=== PATIENT | female | born 1960 | race Caucasian/White ===

== ENCOUNTER 2017-02-05 07:17 | Inpatient (IN) ==
[2017-01-30 14:27] LABS: Appearance,Urine CLEAR; Bacteria,Urine 0 /hpf (0); Bilirubin,Urine NEG (NEG); Color,Urine YELLOW; Glucose,Urine (UA) NEGATIVE (NEG); Leukocyte Esterase,Urine 500 /uL (NEG); Mucus,Urine FEW /hpf (0); Nitrate,Urine NEG (NEG); Protein,Urine NEG (NEG); Specific Gravity,Urine 1.021 (1.000-1.035); Urine Blood NEG mg/dL (<0.03); Urine RBC 4 /hpf (0-1); Urine Squamous Epithelial Cell 1 /hpf (0-4); Urine Transitional Epi Cells 1 /hpf (0-2); Urine WBC 52 /hpf (0-4); Urobilinogen,Urine NEG (NEG)
[2017-01-30 15:00] LABS: Basophils # (Auto) 0.1 K/mcL (0.0-0.3); Basophils % (Auto) 0.7 % (0.0-2.0); Eosinophils # (Auto) 0.4 K/mcL (0.0-0.7); Eosinophils % (Auto) 4.1 % (0.0-7.0); Lymphocytes # (Auto) 3.2 K/mcL (1.5-4.8); Lymphocytes % (Auto) 29.3 % (15.5-49.0); Mean Cell Volume 88.3 fL (80.0-100.0); Monocytes # (Auto) 0.5 K/mcL (0.1-0.9); Monocytes % (Auto) 4.9 % (1.0-12.0); Platelet Count 248 K/mcL (140-440); RBC 4.85 M/mcL (4.00-5.20); Red Cell Distribution Width 14.2 % (11.5-14.5)
[2017-01-30 15:31] LABS: Blood Urea Nitrogen 13 mg/dl (6-20)
--- NOTE | 2017-02-03 16:30 | EKG Interpretations ---
LEATHER STITCHER: Joe Vasquez MD EKG DATE: 01/30/2017 at 1:15 p.m. TODAY'S DATE: 02/02/2017 FINDINGS: 1. Sinus rhythm, 78 beats per minute. 2. Nonspecific ST-segment changes. AmirahJS: Job ID: [id number] Doc ID: [id number] Joe Vasquez MD
[~2017-02-05 07:17] MED LIST: ACETAMINOPHEN 500 MG TABLET PO SCH; PREGABALIN 100 MG CAPSULE PO SCH; ceFAZolin 1 GM VIAL IV SCH; oxyCODONE 10 MG TAB.ER.12H PO SCH
[2017-02-05 08:40] LABS: Appearance,Urine CLEAR; Bilirubin,Urine NEG (NEG); Color,Urine YELLOW; Glucose,Urine (UA) NEGATIVE (NEG); Leukocyte Esterase,Urine NEG /uL (NEG); Nitrate,Urine NEG (NEG); Protein,Urine NEG (NEG); Specific Gravity,Urine 1.019 (1.000-1.035); Urine Blood NEG mg/dL (<0.03); Urobilinogen,Urine NEG (NEG)
[2017-02-05] MEDS ORDERED: IPRATROPIUM/ALBUTEROL 3 ML AMPUL.NEB NEB ONE ×2 (10:09→10:12)
[2017-02-05] MEDS ORDERED: PROPOFOL 200 MG/20 ML VIAL IV ONE (11:00)
[2017-02-05] MEDS ORDERED: PHENYLEPHRINE 10 MG/ML VIAL IV ONE (11:00)
[2017-02-05] MEDS ORDERED: DEXAMETHASONE 10 MG/ML VIAL IV ONE (11:00)
[2017-02-05] MEDS ORDERED: LIDOCAINE HCL/PF 100 MG/5 ML SYRINGE IV ONE (11:00)
[2017-02-05] MEDS ORDERED: ePHEDrine 50 MG/ML AMPUL IV ONE (11:00)
[2017-02-05] MEDS ORDERED: ONDANSETRON 4 MG/2 ML VIAL IV ONE (11:00)
[2017-02-05] MEDS ORDERED: SUCCINYLCHOLINE 20 MG/ML ML IV ONE (11:00)
[2017-02-05] MEDS ORDERED: ALBUTEROL SULFATE 1 PUFF INHALER INH PRN (11:00)
[2017-02-05] MEDS ORDERED: KETAMINE 100 MG/ML ML IV ONE (11:00)
[2017-02-05] MEDS ORDERED: TRANEXAMIC ACID 1,000 MG/10 ML VIAL IV ONE ×3 (11:00→12:56)
[2017-02-05] MEDS ORDERED: MIDAZOLAM 2 MG/2 ML VIAL IV ONE (11:00)
[2017-02-05] MEDS ORDERED: BISACODYL 10 MG SUPP.RECT PR PRN ×2 (11:02→12:56)
[2017-02-05] MEDS ORDERED: ACETAMINOPHEN 325 MG TABLET PO PRN ×2 (11:02→12:56)
[2017-02-05] MEDS ORDERED: BENZOCAINE/MENTHOL 1 LOZENGE PO PRN ×3 (11:02→12:56)
[2017-02-05] MEDS ORDERED: ONDANSETRON 4 MG/2 ML VIAL IV PRN ×3 (11:02→12:56)
[2017-02-05] MEDS ORDERED: HYDROmorphone 2 MG/ML SYRINGE IV PRN ×3 (11:02→12:56)
[2017-02-05] MEDS ORDERED: MAGNESIUM HYDROXIDE 30 ML ORAL.SUSP PO PRN ×2 (11:02→12:56)
[2017-02-05] MEDS ORDERED: TEMAZEPAM 15 MG CAPSULE PO PRN ×2 (11:02→12:56)
[2017-02-05] MEDS ORDERED: FLEETS ADULT ENEMA PR PRN ×2 (11:02→12:56)
[2017-02-05] MEDS ORDERED: POLYETHYLENE GLYCOL 3350 17 GM PACKET PO PRN ×2 (11:02→12:56)
[2017-02-05] MEDS ORDERED: NALOXONE HCL 0.4 MG/ML VIAL IV PRN (12:24)
[2017-02-05] MEDS ORDERED: ePHEDrine 50 MG/ML AMPUL IV PRN (12:24)
[2017-02-05] MEDS ORDERED: IPRATROPIUM/ALBUTEROL 3 ML AMPUL.NEB NEB PRN (12:24)
[2017-02-05] MEDS ORDERED: diphenhydrAMINE 50 MG/ML VIAL IV PRN (12:24)
[2017-02-05] MEDS ORDERED: FLUMAZENIL 0.1 MG/ML ML IV PRN (12:24)
[2017-02-05] MEDS ORDERED: MEPERIDINE 50 MG/ML SYRINGE IM PRN (12:24)
[2017-02-05] MEDS ORDERED: LACTATED RINGERS 250 ML IV PRN (12:24)
[2017-02-05] MEDS ORDERED: MEPERIDINE 25 MG/ML SYRINGE IV PRN (12:24)
[2017-02-05] MEDS ORDERED: METHOCARBAMOL 1,000 MG/10 ML VIAL IV PRN (12:24)
[2017-02-05] MEDS ORDERED: LACTATED RINGERS 1,000 ML IV SCH (12:30)
[2017-02-05] MEDS ORDERED: KETOROLAC 15 MG/ML VIAL IV PRN (12:56)
[2017-02-05] MEDS ORDERED: oxyCODONE/APAP 5/325MG TABLET PO PRN (12:56)
--- NOTE | 2017-02-05 12:56 | Brief Operative Note ---
Date of procedure: 02/05/17 Pre-op diagnosis: left hip djd Post-op diagnosis: same Procedure: left jake Grafts/Implants: Yes Anesthesia: GETA Surgeon: Henri Nava Sanitary Engineering Teacher: Fitz Pearson Estimated blood loss (cc): 150 Specimens Removed/Pathology: none sent Condition: stable Disposition: PACU
[2017-02-05] MEDS ORDERED: ceFAZolin 1 GM VIAL IV SCH (13:00)
[2017-02-05] MEDS ORDERED: 0.45 % SODIUM CHLORIDE 1,000 ML IV SCH (13:00)
[2017-02-05] MEDS ORDERED: GENTAMICIN SULFATE 800 MG/20 ML VIAL IR ONE (13:17)
[2017-02-05] MEDS: fentaNYL 100 MCG/2 ML VIAL IV PRN ×2 (13:39→13:44)
--- NOTE | 2017-02-05 13:55 | Operative Note ---
DATE OF OPERATION: 02/05/2017 PREOPERATIVE DIAGNOSIS: Left hip degenerative arthritis. POSTOPERATIVE DIAGNOSIS: Left hip degenerative arthritis. PROCEDURE: Left total hip arthroplasty. SURGEON: Henri Nava MD. FITNESS STUDIES TEACHER: Fitz Pearson PA-C. ANESTHESIA: General LMA anesthesia. COMPLICATIONS: None. ESTIMATED BLOOD LOSS: About 150 mL. IMPLANTS PLACED: Size 50 cup with a 36 mm liner with a press-fit stem size 3. DESCRIPTION OF PROCEDURE: The patient was brought to the operating room and put to sleep with general LMA anesthesia. Once asleep, the patient had the left hip sterilely prepped and draped in the usual sterile fashion. We confirmed this as the operative site. Preop antibiotics were given and tranexamic acid given. We made about a 6-inch incision because of the fatness of the hip. This was dissected down to the fascial layer. This was incised through the gluteus elke. I then did a superior posterior approach to the hip. This was released, dislocated the hip, and then made the neck cut at 32 mm from the center of hip rotation. Once this was done, I then subluxed the hip anteriorly, reamed up the acetabulum after removing the remnants of the labrum, and reamed up to the size of a 50 mm cementless cup, excellent fixation and good bone quality. We irrigated thoroughly and then placed a 36 mm liner. The cup was placed at 40 degrees of inclination as well as 20 degrees of anteversion. Once this was done, we then prepped the canal. This was broached up to a size 3 and then implanted a size 3 stem. We took an x-ray with image that confirmed that the stem was a little bit proud and made the leg about 3 to 4 mm longer. For this reason, we placed the size 3 stem, countersunk the stem into the appropriate position, irrigated thoroughly, and then placed a 36 mm neutral neck length head. This was reduced, very stable through the range of motion. We irrigated thoroughly and then repaired the capsule posteriorly with #1 Vicryl, closed the fascial layer with Stratafix #1. We closed the skin with #1 Vicryl and 2-0 Vicryl and ric superficially. The patient tolerated this well without complication. RBEarl:jose Job ID: [id number] Doc ID: [id number] Henri Nava MD
[2017-02-05] MEDS ORDERED: 0.9 % SODIUM CHLORIDE 10 ML SYRINGE IV SCH (14:00)
--- NOTE | 2017-02-05 14:58 | XRay Report ---
CLINICAL INFORMATION: Postop total hip prostheses COMPARISON: None. FINDINGS: Left total hip prostheses is anatomically aligned. No osseous abnormality.] The right hip shows mild degeneration. Soft tissue swelling of the surgical site seen - as expected IMPRESSION: Negative Interpreted and Authenticated by: Dwight Howell 02/05/17
[2017-02-05] MEDS: 0.9 % SODIUM CHLORIDE 10 ML SYRINGE IV SCH ×2 (15:39→22:17)
[2017-02-05] MEDS: KETOROLAC 15 MG/ML VIAL IV PRN (16:02)
[2017-02-05] MEDS: 0.45 % SODIUM CHLORIDE 1,000 ML IV SCH (16:10)
[2017-02-05] MEDS: HYDROcodone/APAP 10/325MG TABLET PO PRN ×2 (17:13→20:49)
[2017-02-05] MEDS: metFORMIN 500 MG TABLET PO SCH (17:34)
[2017-02-05] MEDS: ceFAZolin 1 GM VIAL IV SCH (19:51)
[2017-02-05] MEDS: busPIRone 5 MG TABLET PO SCH (19:52)
[2017-02-05] MEDS: PREGABALIN 100 MG CAPSULE PO SCH (19:52)
[2017-02-05] MEDS: ASPIRIN 325 MG ENTERIC COATED TABLET PO SCH (19:52)
[2017-02-05] MEDS: DOCUSATE SODIUM 100 MG CAPSULE PO SCH (19:53)
[2017-02-05] MEDS ORDERED: SENNOSIDES 1 TABLET PO SCH ×2 (21:00)
[2017-02-05] MEDS ORDERED: PRAZOSIN 1 MG CAPSULE PO SCH (21:00)
[2017-02-05] MEDS ORDERED: DOCUSATE SODIUM 100 MG CAPSULE PO SCH (21:00)
[2017-02-05] MEDS ORDERED: ASPIRIN 325 MG ENTERIC COATED TABLET PO SCH (21:00)
[2017-02-06] MEDS: HYDROcodone/APAP 10/325MG TABLET PO PRN ×4 (00:51→13:33)
[2017-02-06] MEDS: KETOROLAC 15 MG/ML VIAL IV PRN (00:51)
[2017-02-06] MEDS: 0.45 % SODIUM CHLORIDE 1,000 ML IV SCH ×2 (03:15→10:27)
[2017-02-06] MEDS: ceFAZolin 1 GM VIAL IV SCH (03:15)
[2017-02-06] MEDS: 0.9 % SODIUM CHLORIDE 10 ML SYRINGE IV SCH ×2 (04:58→12:32)
[2017-02-06] MEDS ORDERED: LEVOTHYROXINE 25 MCG TABLET PO SCH (07:30)
--- NOTE | 2017-02-06 07:41 | Orthopedic Progress Note ---
Subjective Patient information: Note initiated : 02/06/17 at 7:39 am Service Date, if different from initiated Date: [] Patient: Mary Sierra 57 y/o F admitted on 02/05/17 for Left Total Hip Arthroplasty. Chief Complaint: [Pt is stable this morning on post operative day 1 without any significant concerns or complaints. Patients vital signs have remained stable. Patients dressing is dry and exhibits a grossly intact neurovascular and neuromotor exam. Patients 10 point ROS is otherwise negative. ] Objective Vital signs: Vital Signs Temp Pulse Resp BP BP Pulse Ox 02/06/17 07:22 96 02/06/17 07:18 97.2 F 16 108/74 93 02/06/17 03:44 98.4 F 91 H 16 118/79 94 02/06/17 02:00 95 02/06/17 00:00 98.4 F 91 H 18 125/79 94 02/05/17 22:00 95 02/05/17 20:51 95 02/05/17 20:50 95 02/05/17 20:00 97.2 F 102 H 16 137/91 96 02/05/17 19:45 96 02/05/17 18:00 96 02/05/17 17:05 138/85 98 02/05/17 16:35 132/77 98 02/05/17 15:35 141/80 93 02/05/17 15:05 112/69 93 02/05/17 14:50 121/72 93 02/05/17 14:35 121/83 93 02/05/17 14:20 97.2 F 12 110/73 93 02/05/17 14:05 97.3 F 91 H 12 133/71 95 02/05/17 14:00 91 H 11 L 121/67 95 02/05/17 13:45 95 H 16 135/72 95 02/05/17 13:35 94 H 14 117/72 92 02/05/17 13:30 94 H 17 138/76 94 02/05/17 13:25 93 H 13 128/78 98 02/05/17 13:20 95 H 12 142/73 98 02/05/17 13:15 96.8 F L 94 H 14 128/69 96 02/05/17 07:49 98.5 F 16 132/82 94 Intake and Output 08/02/06/17 02/06/17 21:59 05:59 13:59 Intake Total 760 / 760 400 / 400 Output Total 510 / 510 200 / 200 Balance 250 / 250 200 / 200 Intake: Oral 760 / 760 400 / 400 Output: Void Amount 510 / 510 200 / 200 Other: Meal Lunch Nourishment/Supplement Percent of Meal Consumed 100% 100% Feeding Ability Independent Independent # Voids 1 150 Weight 276 lb Intake & Output: Intake & Output 02/05/17 02/06/17 02/06/17 21:59 05:59 13:59 Intake Total 760 / 760 400 / 400 Output Total 510 / 510 200 / 200 Balance 250 / 250 200 / 200 Weight 276 lb Intake: Oral 760 / 760 400 / 400 Output: Void Amount 510 / 510 200 / 200 Other: Meal Lunch Nourishment/Supplement Percent of Meal Consumed 100% 100% Feeding Ability Independent Independent # Voids 1 150 Incision: Yes healing Incision clean and dry: Yes Dressing: Yes clean Weight bearing status: full Neurological exam IM: Yes motor sensory intact, Yes neurovascular intact Extremities exam IM: Yes Foot pink and warm, Yes neurovascular intact - Labs CBC & BMP: 02/06/17 04:52 01/30/17 12:52 Labs: Orthopedic Labs 01/30/17 12:52 PT 11.8 L INR 0.9 APTT 27 02/06/17 01/30/17 04:52 12:52 Hgb 14.6 Hct 38.0 42.8 Assessment and Plan (1) Hx of total hip arthroplasty Patient has been educated regarding wound care and dressings, follow up recommendations, and medication use. We will f/u with the patient within 2-3 weeks for wound check. Status: Acute
--- NOTE | 2017-02-06 07:45 | Discharge Summary ---
Ortho Discharge - [facility] - Patient Instructions Diet: Regular Diet Activity: activity as tolerated, weight bearing as tolerated Total Hip Protocol: Follow activity instructions as provided by Physical Therapy. Dressing Care: May shower in 2 days Patient Education: Oxycodone/Acetaminophen (By mouth), Total Hip Replacement ( DC), General Anesthesia (GEN) - Problem Maintenance (1) Hx of total hip arthroplasty Status: Acute - Follow Up Plan Follow Up Appointments: Henri Nava MD [Physician] - 02/20/17 10:50 am Disposition: Home, Self-Care Prognosis: Good Rehab Potential: Good I certify that the patient requires SNF services: No Overall status at discharge: patient is progressing back to baseline - Orders For Discharge Prescriptions: Aspirin [Ecotrin] 325 mg PO DAILY #14 tab.ec Aspirin [Ecotrin] 325 mg PO BID #60 Docusate Sodium [Colace] 100 mg PO BID #60 capsule HYDROcodone/APAP 10/325MG [[place] 10/325Mg] 1 - 2 tab PO Q4HP PRN #75 tablet PRN Reason: Pain oxyCODONE/APAP [Percocet 5-325 mg] 1 - 2 tab PO Q4H PRN #60 tablet PRN Reason: Pain Additional Discharge Orders: Physical Therapy at Discharge - [facility] Location: Determined By Patient Physical Therapy at Discharge - General Location: Determined By Patient Brace/Splint Location: Determined By Patient Toilet Riser Discharge Order Location: Determined By Patient Walker Location: Determined By Patient
[2017-02-06] MEDS: ASPIRIN 325 MG ENTERIC COATED TABLET PO SCH (08:11)
[2017-02-06] MEDS: busPIRone 5 MG TABLET PO SCH (08:11)
[2017-02-06] MEDS: metFORMIN 500 MG TABLET PO SCH (08:11)
[2017-02-06] MEDS: DOCUSATE SODIUM 100 MG CAPSULE PO SCH (08:15)
[2017-02-06] MEDS: PREGABALIN 100 MG CAPSULE PO SCH (08:47)
[2017-02-06] MEDS ORDERED: ASPIRIN 81 MG TAB.CHEW PO SCH (09:00)
[2017-02-06] MEDS ORDERED: CITALOPRAM 20 MG TABLET PO SCH (09:00)
[2017-02-06] MEDS ORDERED: ARIPIPRAZOLE 5 MG TABLET PO SCH (09:00)
== END 2017-02-06 15:45 | disposition home or self-care (01) | DRG 470 ==
LOC: MEDSUR 07:17
PROVIDERS: ADMIT Orthopaedic Surgery; ATTEND Orthopaedic Surgery

== ENCOUNTER 2017-02-19 12:17 | Inpatient (IN) ==
[2017-02-19] MEDS ORDERED: IOPAMIDOL 100 ML BOTTLE IV ONE (12:18)
[2017-02-19] MEDS ORDERED: 0.9 % SODIUM CHLORIDE 1,000 ML IV ONE (12:22)
--- NOTE | 2017-02-19 12:24 | Emergency Department Note ---
Lower Extremity Injury HPI - General Chief Complaint: Extremity Injury, Lower Stated Complaint: left leg pain Source: patient, EMS Mode of arrival: ambulatory Limitations: no limitations - History of Present Illness HPI Narrative: This patient had a left hip replacement [address] Lagunas. She was sitting on toilet extending and had severe pain developed in the left hip region. - Related Data Home Medications Medication Instructions Recorded Confirmed Aripiprazole [Abilify] 10 mg PO HS 06/17/15 02/19/17 Aspirin [Madie Chewable Aspirin] 81 mg PO DAILY 06/17/15 02/05/17 Citalopram [Celexa] 40 mg PO DAILY 06/17/15 02/19/17 Levothyroxine [Synthroid] 25 mcg PO QAMAC 06/17/15 02/19/17 Prazosin [Minipress] 2 mg PO HS 06/17/15 02/19/17 Pregabalin [Lyrica] 100 mg PO BID 06/17/15 02/19/17 busPIRone [Buspar] 15 mg PO BID 06/17/15 02/19/17 metFORMIN [Glucophage] 500 mg PO BIDCC 06/17/15 02/19/17 Albuterol Sulfate [Proair Hfa] 1 puff INH Q4HP PRN 01/30/17 02/19/17 Previous Rx's Medication Instructions Recorded Aspirin [Ecotrin] 325 mg PO DAILY #14 tab.ec 02/05/17 oxyCODONE/APAP [Percocet 5-325 mg] 1 - 2 tab PO Q4H PRN #60 tablet 02/05/17 Nitrofurantoin Sr [Macrobid] 100 mg PO BID #14 capsule 02/18/17 Allergies Allergy/AdvReac Type Severity Reaction Status Date / Time Sulfa (Sulfonamide Allergy Unknown PT CANNOT Verified 02/18/17 16:58 Antibiotics) RECALL RXN Review of Systems All systems ED: reviewed and negative except as stated. Past Medical History - Past Medical History FORMERLY [facility], 1928–1983 Narrative: Medical History (Last Updated 02/18/17 @ 18:30 by MAMIE Velazquez) Schatzki's ring (Acute) Past Surgical History (Last Updated 02/06/17 @ 07:42 by Fitz Pearson PA-C) H/O esophagogastroduodenoscopy (Acute 06/17/15) Medical history: Reports: diabetes, osteoporosis Surgical history ED: Reports: hip replacement (Left hip replacement 10 days ago) , other (Back problems) - Social History smoking status: Former smoker Alcohol use: Reports: None Drug use: Reports: none Physical Exam Left hip region is a bit tender. Left leg seems slightly shortened. - General Limitations: no limitations General appearance: alert - Head Head exam: atraumatic, normocephalic - Eye Eye exam: Present: normal appearance - Neurological Exam Neurological exam: Present: alert - Psychiatric Psychiatric exam: Present: normal affect, normal mood - Skin Skin exam: Present: warm, dry, intact Course Vital Signs Temperature 98.6 F 02/19/17 12:17 Pulse Rate 84 02/19/17 12:17 Respiratory Rate 16 02/19/17 12:17 Pulse Oximetry (%) 90 02/19/17 12:17 Temperature 98.2 F 02/20/17 04:00 Pulse Rate 75 02/20/17 04:00 Respiratory Rate 14 02/20/17 04:00 Blood Pressure 138/84 02/20/17 04:00 Pulse Oximetry (%) 98 02/20/17 04:00 Extremity Injury, Lower - MDM Narrative Medical decision making narrative: X-ray shows a fracture on the upper femur next to the hip prosthesis. Dr. Lagunas has evaluated the patient will take her to surgery probably tomorrow. She will be admitted to the hospital by Dr. Rodgers. - Lab Data Lab results reviewed: Yes I reviewed the patient's lab results. Result diagrams: 02/19/17 14:02 02/19/17 14:02 Lab Results 02/19/17 02/19/17 02/19/17 Range/Units 13:54 14:02 14:02 WBC 7.0 (4.5-11.0) K/mcL RBC 3.82 L (4.00-5.20) M/mcL Hgb 11.4 L (12.0-15.0) g/dL Hct 34.1 L (36.0-48.0) % MCV 89.3 (80.0-100.0) fL MCH 29.8 (26.0-34.0) pg MCHC 33.4 (31.0-36.0) g/dL RDW 14.9 H (11.5-14.5) % Plt Count 296 (140-440) K/mcL MPV 8.9 (7.4-10.4) fL Gran % 53.4 (38.0-78.0) % Lymph % (Auto) 27.3 (15.5-49.0) % [place] % (Auto) 8.3 (1.0-12.0) % Eos % (Auto) 9.8 H (0.0-7.0) % Baso % (Auto) 1.2 (0.0-2.0) % Gran # 3.8 (1.8-8.0) K/mcL Lymph # (Auto) 1.9 (1.5-4.8) K/mcL [place] # (Auto) 0.6 (0.1-0.9) K/mcL Eos # (Auto) 0.7 (0.0-0.7) K/mcL Baso # (Auto) 0.1 (0.0-0.3) K/mcL Sodium 142 (133-145) mmol/L Potassium 4.3 (3.3-5.1) mmol/L Chloride 102 (96-108) mmol/L Carbon Dioxide 30 (22-30) mmol/L Anion Gap 10.0 (8-16) BUN 16 (6-20) mg/dl Creatinine 0.8 (0.6-1.1) mg/dl GFR Calculation 82 Glucose 98 (70-105) mg/dL Calcium 8.8 (8.6-10.4) mg/dl Total Bilirubin 1.4 H (0.0-1.0) mg/dL AST 491 H (0-37) U/l ALT 301 H (0-40) U/l Alkaline Phosphatase 804 H (39-117) U/L Total Protein 6.4 (5.9-8.4) gm/dL Albumin 3.6 (3.2-5.2) gm/dL Globulin 2.8 (2.2-3.7) gm/dL Albumin/Globulin Ratio 1.3 (1.0-2.3) Urine Color Urine Appearance Urine pH (5.0-9.0) Ur Specific [place] (1.000-1.035) Urine Protein (NEG) mg/dL Urine Glucose (UA) (NEG) mg/dL Urine Ketones (NEG) mg/dL Urine Occult Blood (<0.03) mg/dL Urine Nitrate (NEG) Urine Bilirubin (NEG) mg/dL Urine Urobilinogen (NEG) mg/dL Ur Leukocyte Esterase (NEG) /uL Ur Culture Indicated? Urine Opiates Screen (NONDETECTED) Ur Opiates Confirm Ur Oxycodone Screen (NONDETECTED) Urine Methadone Screen (NONDETECTED) Ur Methadone Confirm Acetaminophen < 5.0 (0.0-5.0) ug/mL Ur Barbiturates Screen (NONDETECTED) Ur Barbiturate Confirm Ur Phencyclidine Scrn (NONDETECTED) Urine PCP Confirm Ur Amphetamines Screen (NONDETECTED) U Benzodiazepines Scrn (NONDETECTED) U Benzodiazepine Confm Urine Cocaine Screen (NONDETECTED) Urine Cocaine Confirm U Cannabinoids Confirm U Marijuana (THC) Screen (NONDETECTED) Ethyl Alcohol (<0.010) gm/dl 02/19/17 02/19/17 02/19/17 Range/Units 16:37 16:37 16:37 WBC (4.5-11.0) K/mcL RBC (4.00-5.20) M/mcL Hgb (12.0-15.0) g/dL Hct (36.0-48.0) % MCV (80.0-100.0) fL MCH (26.0-34.0) pg MCHC (31.0-36.0) g/dL RDW (11.5-14.5) % Plt Count (140-440) K/mcL MPV (7.4-10.4) fL Gran % (38.0-78.0) % Lymph % (Auto) (15.5-49.0) % [place] % (Auto) (1.0-12.0) % Eos % (Auto) (0.0-7.0) % Baso % (Auto) (0.0-2.0) % Gran # (1.8-8.0) K/mcL Lymph # (Auto) (1.5-4.8) K/mcL [place] # (Auto) (0.1-0.9) K/mcL Eos # (Auto) (0.0-0.7) K/mcL Baso # (Auto) (0.0-0.3) K/mcL Sodium (133-145) mmol/L Potassium (3.3-5.1) mmol/L Chloride (96-108) mmol/L Carbon Dioxide (22-30) mmol/L Anion Gap (8-16) BUN (6-20) mg/dl Creatinine (0.6-1.1) mg/dl GFR Calculation Glucose (70-105) mg/dL Calcium (8.6-10.4) mg/dl Total Bilirubin (0.0-1.0) mg/dL AST (0-37) U/l ALT (0-40) U/l Alkaline Phosphatase (39-117) U/L Total Protein (5.9-8.4) gm/dL Albumin (3.2-5.2) gm/dL Globulin (2.2-3.7) gm/dL Albumin/Globulin Ratio (1.0-2.3) Urine Color Yellow Urine Appearance Clear Urine pH 5.0 (5.0-9.0) Ur Specific [place] 1.038 H (1.000-1.035) Urine Protein Neg (NEG) mg/dL Urine Glucose (UA) Negative (NEG) mg/dL Urine Ketones Neg (NEG) mg/dL Urine Occult Blood Neg (<0.03) mg/dL Urine Nitrate Neg (NEG) Urine Bilirubin Neg (NEG) mg/dL Urine Urobilinogen 4.0 A (NEG) mg/dL Ur Leukocyte Esterase Neg (NEG) /uL Ur Culture Indicated? No Urine Opiates Screen Suspect positive A (NONDETECTED) Ur Opiates Confirm Not Reportable Ur Oxycodone Screen Suspect positive A (NONDETECTED) Urine Methadone Screen None detected (NONDETECTED) Ur Methadone Confirm Not Reportable Acetaminophen (0.0-5.0) ug/mL Ur Barbiturates Screen None detected (NONDETECTED) Ur Barbiturate Confirm Not Reportable Ur Phencyclidine Scrn None detected (NONDETECTED) Urine PCP Confirm Not Reportable Ur Amphetamines Screen Suspect positive A (NONDETECTED) U Benzodiazepines Scrn None detected (NONDETECTED) U Benzodiazepine Confm Not Reportable Urine Cocaine Screen None detected (NONDETECTED) Urine Cocaine Confirm Not Reportable U Cannabinoids Confirm Not Reportable U Marijuana (THC) Screen None detected (NONDETECTED) Ethyl Alcohol < 0.010 (<0.010) gm/dl - Radiology Data Radiology results reviewed: Yes I reviewed the patient's radiology results. Disposition Pt seen by MEDICAID ANALYST/PA only: No Clinical Impression: Femur fracture Disposition: Xfer As Inpt ([facility]) Condition: Fair
[2017-02-19] MEDS ORDERED: HYDROmorphone 2 MG/ML SYRINGE ONE (12:30)
--- NOTE | 2017-02-19 13:16 | XRay Report ---
CLINICAL INFORMATION: Status post left hip replacement surgery (two weeks ago). Acute injury TECHNIQUE: AP pelvis and bilateral hips. AP and lateral left hip COMPARISON: Previous postoperative evaluation dated 02/05/2017 FINDINGS: Status post left total hip arthroplasty. Acute fracture of the proximal left femoral diaphysis. This is subsequent tear and extends from the medullary space to the medial cortex. No displacement or malalignment No other acute abnormality. Pelvis is negative. Sacrum is negative. IMPRESSION: 1. Previous left total hip arthroplasty 2. Acute nondisplaced left subtrochanteric hip fracture Interpreted and Authenticated by: Dwight Marsh 02/19/17
[2017-02-19] MEDS: HYDROmorphone 2 MG/ML SYRINGE IV PRN ×5 (13:42→22:49)
[2017-02-19 14:30] LABS: Basophils # (Auto) 0.1 K/mcL (0.0-0.3); Basophils % (Auto) 1.2 % (0.0-2.0); Eosinophils # (Auto) 0.7 K/mcL (0.0-0.7); Eosinophils % (Auto) 9.8 % (0.0-7.0); Granulocytes % (Auto) 53.4 % (38.0-78.0); Lymphocytes # (Auto) 1.9 K/mcL (1.5-4.8); Lymphocytes % (Auto) 27.3 % (15.5-49.0); Mean Cell Volume 89.3 fL (80.0-100.0); Mean Corpuscular HGB Conc 33.4 g/dL (31.0-36.0); Mean Corpuscular Hemoglobin 29.8 pg (26.0-34.0); Monocytes # (Auto) 0.6 K/mcL (0.1-0.9); Monocytes % (Auto) 8.3 % (1.0-12.0); Platelet Count 296 K/mcL (140-440); RBC 3.82 M/mcL (4.00-5.20); Red Cell Distribution Width 14.9 % (11.5-14.5)
[2017-02-19 14:47] LABS: ALT/SGPT 301 U/l (0-40); Albumin 3.6 gm/dL (3.2-5.2); Albumin/Globulin Ratio 1.3 (1.0-2.3); Alkaline Phosphatase 804 U/L (39-117); Blood Urea Nitrogen 16 mg/dl (6-20)
--- NOTE | 2017-02-19 15:05 | XRay Report ---
INDICATION: Left leg pain. Preoperative chest x-ray TECHNIQUE: AP portable chest x-ray COMPARISON: None FINDINGS:Cardiomegaly. Pulmonary vascularity is normal. No pulmonary edema. No pulmonary congestion. No focal pulmonary parenchymal infiltrate or mass. IMPRESSION: 1. Cardiomegaly 2. Otherwise negative AP portable chest x-ray Interpreted and Authenticated by: Dwight Marsh 02/19/17
--- NOTE | 2017-02-19 15:27 | Internal Medicine Consult Note ---
Medical - CN: HPI - Data of Consult Consult date: 02/19/17 Requesting Physician: Henir Nava Primary Care Provider: Mireya Rai Family Provider: Mireya Rai - Consult Narrative Reason for consult: Management of medical issues History of present illness: Ms. Sierra is a 57 year old F who recently underwent Lt hip replacement and has been experienceing progressive pain a week post surgery, She has been taking 9- 10 hydrocodones a day. This morning while trying to get up from tolite seatshe turned to nfast and experiienced excrutioting pain gradede as 10/10. she was then brought in to ED for Eval. Orthopedics was consulted after imaging revealed Lt hip Acute nondisplaced left subtrochanteric hip fracture. Orthopedics admitted pt for surgical intervention. Hospitalist service was consulted. On examination patient is fairly distressed, She denies fall, syncope. Her initial labs revealed ALP >800 and AST>490 Denies alcoholism, OTC meds or herbs intake, Denies fever, jaundice, RUQ pain, Pt is post cholecystectomy. NO N/V/CP/SOB. ROS- 10 point ROS negative except for as discussed above CC: - Constitutional Constitutional: Present: lethargy, malaise Medical - CN: PMH Medical history: Anxiety disorder HTN Neuropathy Obesity DMII hypothyroidism RAD Surgical history: Cholecystectomy Rt Knee Pertinent family history: Mother TYLER Núñez DMII, RA,OA Social history: ivs with boyfriend No ETOH NO Tobacco On disability Daughter krystin # [phone] Functional capacity: independent ambulation Have you smoked in the last 12 months: No Drug use: none Alcohol use: none Medical - CN: Meds Home Medications Medication Instructions Recorded Confirmed Type Aripiprazole [Abilify] 10 mg PO HS 06/17/15 02/19/17 History Aspirin [Madie Chewable Aspirin] 81 mg PO DAILY 06/17/15 02/05/17 History Citalopram [Celexa] 40 mg PO DAILY 06/17/15 02/19/17 History Levothyroxine [Synthroid] 25 mcg PO QAMAC 06/17/15 02/19/17 History Prazosin [Minipress] 2 mg PO HS 06/17/15 02/19/17 History Pregabalin [Lyrica] 100 mg PO BID 06/17/15 02/19/17 History busPIRone [Buspar] 15 mg PO BID 06/17/15 02/19/17 History metFORMIN [Glucophage] 500 mg PO BIDCC 06/17/15 02/19/17 History Albuterol Sulfate [Proair Hfa] 1 puff INH Q4HP PRN 01/30/17 02/19/17 History Aspirin [Ecotrin] 325 mg PO DAILY #14 tab.ec 02/05/17 02/19/17 Rx oxyCODONE/APAP [Percocet 5-325 mg] 1 - 2 tab PO Q4H PRN #60 tablet 02/05/1704/27 Rx Nitrofurantoin Sr [Macrobid] 100 mg PO BID #14 capsule 02/18/17 02/19/17 Rx Allergies Allergy/AdvReac Type Severity Reaction Status Date / Time Sulfa (Sulfonamide Allergy Unknown PT CANNOT Verified 02/18/17 16:58 Antibiotics) RECALL RXN Medical - CN: Exam - Constitutional Vitals: Temp Pulse Resp BP Pulse Ox 98.6 F 84 16 112/78 93 02/19/17 12:17 02/19/17 14:32 02/19/17 12:17 02/19/17 14:32 02/19/17 14:32 General appearance: disheveled, obese Exam: MARLEY Oral cavity ry NO ear/nose discharge Chest clear S1S1 RR Abd pendulous, Negative calle, ND LE LLE- shortened and ext rotated NL pulses, Warm extremities Skin no suspicoius lesions PSy- alert and cooperattive Neuro Nl higher Fxn Medical - CN: Result - Labs CBC & Chem 7: 02/19/17 14:02 02/19/17 14:02 Labs: Short CBC 02/19/17 Range/Units 14:02 WBC 7.0 (4.5-11.0) K/mcL Hgb 11.4 L (12.0-15.0) g/dL Hct 34.1 L (36.0-48.0) % Plt Count 296 (140-440) K/mcL BMP 02/19/17 14:02 Sodium 142 Potassium 4.3 Chloride 102 Carbon Dioxide 30 BUN 16 Creatinine 0.8 Glucose 98 Calcium 8.8 Liver Function 02/19/17 Range/Units 14:02 Total Bilirubin 1.4 H (0.0-1.0) mg/dL AST 491 H (0-37) U/l ALT 301 H (0-40) U/l Alkaline Phosphatase 804 H (39-117) U/L Albumin 3.6 (3.2-5.2) gm/dL Medical - CN: A/P (1) Closed left hip fracture Status: Acute Assessment and plan: * Lt hip fracture- Mx per Orthopedics including preoperative and postoperative pain management/postoperative care. Hospitalist consult * Elevated LFT's - obstructive pattern Alk Phos >800. evaluate with US abd, CT abd to exclude choledocholithiasis, Tox screen, tylenol and ETOH levels. Check Hep panel if test inconclusive Other medical conditions restart home meds * Low thyroid-ontinue thyroxine * HTN continue prazosin * Anxiety ontinue buspirone/citalopram * DMII-starts sliding scale insulin * neuropathy on pregabalin * reactive airway disease on bronchodilators * full code
--- NOTE | 2017-02-19 16:04 | Cat Scan Report ---
CLINICAL INFORMATION: Abnormal liver function tests COMPARISON: Abdominal CT scan dated 05/26/2015 TECHNIQUE: Axial images were obtained through the abdomen and pelvis. Sagittally and coronally reformatted images. 90 mL nonionic contrast material injected intravenously. FINDINGS: Lung bases are negative. No parenchymal infiltrate or mass. No pleural fluid, no pericardial fluid. Negative liver. No focal intrahepatic abnormalities. Normal smooth liver contour. No ascites. There are surgical clips in the gallbladder fossa. Common bile duct measures 10 mm. This is unchanged since 05/26/2015. No intrahepatic bile duct dilatation Negative pancreas. No pancreatic mass. No peripancreatic abnormality. Negative spleen. No splenomegaly. Normal enhancement of splenic and portal veins. Negative adrenal glands. Negative kidneys. No solid or cystic mass. No hydronephrosis. No renal calculi. Changes consistent with previous hysterectomy. No pelvic mass. Colon is negative. No diverticulitis. No appendicitis. No detectable colonic mass. No small bowel obstruction. No retroperitoneal or mesenteric lymphadenopathy. Lumbar spine is negative. There are changes of multilevel degenerative disc disease. No compression fractures. Sacrum and pelvis are negative. Patient has a prosthetic left hip. There is a nondisplaced subtrochanteric proximal left femoral fracture. This was evaluated with plain film examination dated 02/19/2017 IMPRESSION: 1. Normal CT scan of the liver. Previous cholecystectomy. Common bile duct is dilated to 10 mm without intrahepatic bile duct dilatation. Appearance is stable 2. Status post left total hip arthroplasty. Subtrochanteric proximal left femoral fracture Interpreted and Authenticated by: Dwight Marsh 02/19/17
--- NOTE | 2017-02-19 16:51 | Ultrasound Report ---
CLINICAL INFORMATION: Abnormal liver function tests TECHNIQUE: Grayscale and color flow Doppler spectral imaging COMPARISON: Abdominal CT scans dated 02/19/2017 and 05/26/2015 FINDINGS: Previous cholecystectomy Common bile duct is dilated to 9 mm. Is unchanged. No detectable choledocholithiasis. No intrahepatic bile duct dilatation. Liver measures 16.8 cm maximally. No focal intrahepatic abnormalities. Normal homogeneous echotexture. Normal smooth liver contour. No ascites. No dilated intrahepatic bile ducts. Visualized portions of the pancreas are negative. No pancreatic mass. IMPRESSION: 1. Previous cholecystectomy. Prominent common bile duct without intrahepatic bile duct dilatation 2. No focal intrahepatic abnormality Interpreted and Authenticated by: Dwight Marsh 02/19/17
[2017-02-19 17:07] LABS: Appearance,Urine CLEAR; Bilirubin,Urine NEG (NEG); Color,Urine YELLOW; Glucose,Urine (UA) NEGATIVE (NEG); Leukocyte Esterase,Urine NEG /uL (NEG); Nitrate,Urine NEG (NEG); Protein,Urine NEG (NEG); Specific Gravity,Urine 1.038 (1.000-1.035); Urine Blood NEG mg/dL (<0.03)
[2017-02-19 17:14] LABS: Amphetamine Screen,Urine SUSPECT POSITIVE (NONDETECTED); Benzodiazepines Screen,Urine NONE DETECTED (NONDETECTED); Cocaine Screen,Urine NONE DETECTED (NONDETECTED); Opiate Screen,Urine SUSPECT POSITIVE (NONDETECTED); Oxycodone, Urine Screen SUSPECT POSITIVE (NONDETECTED)
[2017-02-19] MEDS ORDERED: ACETAMINOPHEN 325 MG TABLET PO PRN (17:14)
[2017-02-19] MEDS ORDERED: 0.9 % SODIUM CHLORIDE 1,000 ML IV SCH (17:14)
[2017-02-19] MEDS ORDERED: POTASSIUM CHLORIDE 20 MEQ PACKET PO PRN (17:14)
[2017-02-19] MEDS ORDERED: MAGNESIUM HYDROXIDE 30 ML ORAL.SUSP PO PRN (17:14)
[2017-02-19] MEDS ORDERED: MAGNESIUM SULFATE 2 GM/50 ML BAG IV PRN (17:14)
[2017-02-19] MEDS ORDERED: ONDANSETRON 4 MG/2 ML VIAL IV PRN (17:14)
[2017-02-19] MEDS ORDERED: guaiFENesin/CODEINE 10 ML UDC PO PRN (17:14)
[2017-02-19] MEDS: 0.9 % SODIUM CHLORIDE 1,000 ML IV SCH (18:40)
[2017-02-19] MEDS: DOCUSATE SODIUM 100 MG CAPSULE PO SCH (20:46)
[2017-02-19] MEDS: 0.9 % SODIUM CHLORIDE 10 ML SYRINGE IV SCH (20:47)
[2017-02-19] MEDS ORDERED: traZODone HCL 50 MG TABLET PO PRN (21:00)
[2017-02-19] MEDS ORDERED: SENNOSIDES/DOCUSATE SODIUM 1 TAB TABLET PO SCH (21:00)
[2017-02-19] MEDS ORDERED: HEPARIN 5,000 UNIT/ML VIAL SQ SCH (21:00)
[2017-02-19] MEDS: ACETAMINOPHEN 1,000 MG/100 ML BOTTLE IV PRN (23:36)
[2017-02-20] MEDS: HYDROmorphone 2 MG/ML SYRINGE IV PRN ×9 (02:59→21:25)
[2017-02-20] MEDS: 0.9 % SODIUM CHLORIDE 10 ML SYRINGE IV SCH ×4 (06:44→23:46)
[2017-02-20] MEDS: DOCUSATE SODIUM 100 MG CAPSULE PO SCH ×2 (07:08→22:12)
[2017-02-20] MEDS: ACETAMINOPHEN 1,000 MG/100 ML BOTTLE IV PRN (07:14)
[2017-02-20 08:07] LABS: Mean Cell Volume 90.6 fL (80.0-100.0); Mean Corpuscular HGB Conc 32.9 g/dL (31.0-36.0); Mean Corpuscular Hemoglobin 29.9 pg (26.0-34.0); Platelet Count 305 K/mcL (140-440); RBC 3.68 M/mcL (4.00-5.20); Red Cell Distribution Width 15.1 % (11.5-14.5)
[2017-02-20 08:27] LABS: ALT/SGPT 321 U/l (0-40); Albumin 3.4 gm/dL (3.2-5.2); Albumin/Globulin Ratio 1.3 (1.0-2.3); Alkaline Phosphatase 793 U/L (39-117); Bilirubin,Direct < 0.2 mg/dL (0.0-0.3); Blood Urea Nitrogen 12 mg/dl (6-20); Gamma Glutamyl Transpeptidase 1837 U/L (5-36); Uric Acid 5.2 mg/dL (2.5-8.0)
[2017-02-20] MEDS: METHOCARBAMOL 1,000 MG/10 ML VIAL IV PRN ×2 (08:34→19:12)
[2017-02-20 08:57] LABS: Basophils % (Manual) 1 % (0-2); Eosinophils % (Manual) 11 % (0-7); Lymphocytes % 24 % (15-49); Monocytes % (Manual) 4 % (1-12); Platelet Estimate NORMAL (NORMAL); RBC Morphology NORMAL (NORMAL); Segmented Neutrophils % 60 % (38-78)
[2017-02-20] MEDS ORDERED: MULTIVIT,THER IRON,CA,FA & MIN 1 TABLET PO SCH (09:00)
[2017-02-20] MEDS ORDERED: DEXTROSE 31 GM ORAL.SUSP PO PRN (09:09)
[2017-02-20] MEDS ORDERED: DEXTROSE 50% 50 ML VIAL IV PRN (09:09)
[2017-02-20] MEDS: INSULIN LISPRO 1 UNIT/0.01 ML UNIT SQ SCH ×2 (12:33→22:28)
[2017-02-20] MEDS ORDERED: ALBUTEROL SULFATE 1 PUFF INHALER INH PRN (12:48)
--- NOTE | 2017-02-20 12:51 | Internal Med Progress Note ---
Medical - PN: Subj Patient information: Note initiated : 02/20/17 at 12:44 pm Service Date, if different from initiated Date: [] Patient: Mary Sierra a 57 y/o F admitted on 02/19/17 for Left Leg Pain/Left Hip Fracture. Chief Complaint: [] Interval history: Ms. Sierra is a 57 year old F who recently underwent Lt hip replacement and has been experienceing progressive pain a week post surgery, She has been taking 9- 10 hydrocodones a day. This morning while trying to get up from tolite seatshe turned to nfast and experiienced excrutioting pain gradede as 10/10. she was then brought in to ED for Eval. Orthopedics was consulted after imaging revealed Lt hip Acute nondisplaced left subtrochanteric hip fracture. Orthopedics admitted pt for surgical intervention. Hospitalist service was consulted. On examination patient is fairly distressed, She denies fall, syncope. Her initial labs revealed ALP >800 and AST>490 Denies alcoholism, OTC meds or herbs intake, Denies fever, jaundice, RUQ pain, Pt is post cholecystectomy. NO N/V/CP/SOB. 02/20-atient awaiting surgery for hip fracture. Urine tox screen positive for amphetamines and opioids. LFTs downtrending. Patient stable overnight. Currently nothing by mouth. Will review post operatively. currently no modifiable risk factors identified. - Constitutional Vitals: Vital Signs Temp Pulse Resp BP Pulse Ox 97.7 F 77 20 118/68 96 02/20/17 11:33 02/20/17 07:50 02/20/17 11:33 02/20/17 11:33 02/20/17 11:33 Period Temp Pulse Resp BP Sys/Son Pulse Ox Last 24 Hr 97.5 F-98.3 F 75-88 12-20 118-138/68-90 94-98 Intake and Output 02/19/17 02/20/17 02/20/17 21:59 05:59 13:59 Intake Total 1360 / 2360 350 / 350 240 / 240 Output Total 850 / 850 1350 / 1350 Balance 1360 / 2360 -500 / -500 -1110 / -1110 Weight 285 lb 8 oz Intake & Output: Intake & Output 02/19/17 02/20/17 02/20/17 21:59 05:59 13:59 Intake Total 1360 / 2360 350 / 350 240 / 240 Output Total 850 / 850 1350 / 1350 Balance 1360 / 2360 -500 / -500 -1110 / -1110 Weight 285 lb 8 oz Intake: IV 1000 / 1000 100 / 100 Sodium Chloride 0.9% 1, 1000 / 1000 000 ml @ Wide Open IV BOLUS [facility] Rx#:[id number] Oral 360 / 360 250 / 250 240 / 240 Output: Urine Catheter Amount 850 / 850 1350 / 1350 Other: Meal Breakfast Percent of Meal Consumed 100% General appearance: morbidly obese, no acute distress Exam: CTAb S1S2 regular Anxious Medical - PN: Obj Da - Labs CBC & Chem 7: 02/20/17 06:30 02/20/17 06:30 Labs: Abnormal Lab Results 02/20/17 02/20/17 06:30 06:30 RBC 3.68 L Hgb 11.0 L Hct 33.3 L RDW 15.1 H Eosinophils % (Manual) 11 H Glucose 110 H GGT 1837 H AST 363 H ALT 321 H Alkaline Phosphatase 793 H Lactate Dehydrogenase 341 H Meds: Medications Acetaminophen (Tylenol) 650 mg PO Q4-6HP PRN PRN Reason: PAIN/FEVER > 101 Dextrose (Dextrose 50%) 0 ml IV UD PRN PRN Reason: Hypoglycemia Diagnostic Test (Pha) (Accu-Chek) 1 each FS ACHS [facility] Last Admin: 02/20/17 12:32 Dose: 1 each Docusate Sodium (Colace) 100 mg PO BID [facility] Last Admin: 02/20/17 07:08 Dose: Not Given Glucose (Insta-Glucose) 15 gm PO PRN PRN PRN Reason: Hypoglycemia Guaifenesin/Codeine Phosphate (Robitussin Ac) 10 ml PO Q4HP PRN PRN Reason: Cough Hydromorphone HCl (Dilaudid) 0.2 - 0.4 mg IV Q1HP PRN PRN Reason: Pain Last Admin: 02/20/17 10:16 Dose: 0.4 mg Magnesium Sulfate (Magnesium Sulfate) 2 gm in 50 mls @ 50 mls/hr IV UD PRN PRN Reason: MG = or < 1.7 Sodium Chloride (Sodium Chloride 0.9%) 1,000 mls @ 50 mls/hr IV .Q20H [facility] Stop: 02/22/17 05:13 Last Admin: 02/19/17 18:40 Dose: 50 mls/hr Acetaminophen (Ofirmev) 1,000 mg in 100 mls @ 200 mls/hr IV Q6HP PRN PRN Reason: PAIN/FEVER > 101 Last Admin: 02/20/17 07:14 Dose: 200 mls/hr Insulin Human Lispro (Humalog) 0 unit SQ ACHS [facility] PRN Reason: Protocol Last Admin: 02/20/17 12:33 Dose: Not Given Iron Carb/Multivit/Professional System Administrator/Folic Acid (Multivitamin W/Minerals) 1 tab PO DAILY [facility] Last Admin: 02/20/17 07:08 Dose: Not Given Magnesium Hydroxide (Milk Of Magnesia) 30 ml PO HSP PRN PRN Reason: Constipation Methocarbamol (Robaxin) 750 mg IV Q6HP PRN PRN Reason: Muscle Spasm Last Admin: 02/20/17 08:34 Dose: 750 mg Ondansetron HCl (Zofran) 4 mg IV Q4-6HP PRN PRN Reason: Nausea And Vomiting Potassium Chloride (Klor-Con) 40 meq PO DAILYP PRN PRN Reason: K+ < 3.5 Senna/Docusate Sodium (Senna Plus Tablet) 1 tab PO HS [facility] Last Admin: 02/19/17 20:47 Dose: Not Given Sodium Chloride (Saline Flush) 10 ml IV Q8 [facility] Last Admin: 02/20/17 06:44 Dose: Not Given Trazodone HCl (Desyrel) 50 mg PO HSP PRN PRN Reason: Insomnia Medical - PN: A/P - Time Spent With Patient Total time spent is greater than 50% in coordination of care (as documented) at patient's floor/unit and/or counseling patient: 25 - 35 minutes (1) Closed left hip fracture Status: Acute Assessment and plan: * Lt hip fracture- Mx per Orthopedics including preoperative and postoperative pain management/postoperative care. Hospitalist consult * Elevated LFT's -downtrending. obstructive pattern Alk Phos >800. Negative US abd, CT abd , Tox screen + Amphetamines, Negative APAP. * reoperative risk evaluation-o modifiable risk factors.iven morbid obesity patient will be a high risk pulmonary decompensation. Based on surgery specific risk and recent surgery within last 2 weeks she would be a high risk overall candidate for an adverse coronary/cerebrovascular and pulmonary vent. However there are not many underlying modifiable risk factors and hence ultimately separate individual care providers including anesthesia and surgery to discuss risk and possible outcome. at this time patient is agreeable for surgery. Other medical conditions restart home meds post surgery * Low thyroid- continue thyroxine * HTN continue prazosin * Anxiety- Continue buspirone/citalopram * DMII-start sliding scale insulin * neuropathy managed on pregabalin * reactive airway disease on bronchodilators * full code Current Visit: Yes
[2017-02-20] MEDS: 0.9 % SODIUM CHLORIDE 1,000 ML IV SCH ×2 (13:57→14:49)
[2017-02-20] MEDS ORDERED: ceFAZolin 1 GM VIAL IV SCH (16:15)
[2017-02-20] MEDS ORDERED: METHOCARBAMOL 1,000 MG/10 ML VIAL IV PRN (16:16)
[2017-02-20] MEDS ORDERED: MEPERIDINE 25 MG/ML SYRINGE IV PRN (16:16)
[2017-02-20] MEDS ORDERED: BENZOCAINE/MENTHOL 1 LOZENGE PO PRN (16:16)
[2017-02-20] MEDS ORDERED: IPRATROPIUM/ALBUTEROL 3 ML AMPUL.NEB NEB PRN (16:16)
[2017-02-20] MEDS ORDERED: ONDANSETRON 4 MG/2 ML VIAL IV PRN ×2 (16:16→18:41)
[2017-02-20] MEDS ORDERED: GENTAMICIN SULFATE 800 MG/20 ML VIAL IR ONE (16:26)
[2017-02-20] MEDS ORDERED: LIDOCAINE HCL/PF 100 MG/5 ML SYRINGE IV ONE (16:30)
[2017-02-20] MEDS ORDERED: LACTATED RINGERS 1,000 ML IV SCH (16:30)
[2017-02-20] MEDS ORDERED: PHENYLEPHRINE 10 MG/ML VIAL IV ONE (16:30)
[2017-02-20] MEDS ORDERED: SUCCINYLCHOLINE 20 MG/ML ML IV ONE (16:30)
[2017-02-20] MEDS ORDERED: GLYCOPYRROLATE 0.2 MG/ML VIAL IV ONE (16:30)
[2017-02-20] MEDS ORDERED: MIDAZOLAM 2 MG/2 ML VIAL IV ONE (16:30)
[2017-02-20] MEDS ORDERED: KETAMINE 100 MG/ML ML IV ONE (16:30)
[2017-02-20] MEDS ORDERED: HYDROmorphone 2 MG/ML SYRINGE IV ONE (16:30)
[2017-02-20] MEDS ORDERED: TRANEXAMIC ACID 1,000 MG/10 ML VIAL IV ONE ×2 (16:30→18:41)
[2017-02-20] MEDS ORDERED: ONDANSETRON 4 MG/2 ML VIAL IV ONE (16:30)
[2017-02-20] MEDS ORDERED: PROPOFOL 200 MG/20 ML VIAL IV ONE (16:30)
[2017-02-20] MEDS ORDERED: metFORMIN 500 MG TABLET PO SCH (17:30)
[2017-02-20] MEDS ORDERED: ACETAMINOPHEN 325 MG TABLET PO PRN (18:41)
[2017-02-20] MEDS ORDERED: MAGNESIUM HYDROXIDE 30 ML ORAL.SUSP PO PRN (18:41)
[2017-02-20] MEDS ORDERED: FLEETS ADULT ENEMA PR PRN (18:41)
[2017-02-20] MEDS ORDERED: POLYETHYLENE GLYCOL 3350 17 GM PACKET PO PRN (18:41)
[2017-02-20] MEDS ORDERED: BISACODYL 10 MG SUPP.RECT PR PRN (18:41)
[2017-02-20] MEDS ORDERED: HYDROmorphone 2 MG/ML SYRINGE IV PRN (18:41)
[2017-02-20] MEDS ORDERED: TEMAZEPAM 15 MG CAPSULE PO PRN (18:41)
--- NOTE | 2017-02-20 18:41 | Brief Operative Note ---
Date of procedure: 02/20/17 Pre-op diagnosis: right periprosthetic fx Post-op diagnosis: same Procedure: right periprosthetic fracture orif and stem revision Grafts/Implants: Yes Anesthesia: GETA Complications Description: 02/20/17 18:40 none Surgeon: Henri Nava Brisket Puller: Fitz Pearson Estimated blood loss (cc): 250 Specimens Removed/Pathology: none sent Condition: stable Disposition: PACU
[2017-02-20] MEDS: fentaNYL 100 MCG/2 ML VIAL IV PRN ×4 (19:15→19:35)
--- NOTE | 2017-02-20 20:01 | XRay Report ---
CLINICAL INFORMATION: Postsurgical follow-up. Left hip replacement. Subtrochanteric left hip fracture TECHNIQUE: AP and lateral left hip COMPARISON: Preoperative evaluation dated 02/19/2017 FINDINGS: Status post revision of left total hip arthroplasty. Femoral head complements has been replaced and there is a longer stem presently. There are cerclage wires fixing the subtrochanteric hip fracture. Alignment is anatomic IMPRESSION: 1. Status post revision of left total hip arthroplasty as above 2. Anatomic alignment Interpreted and Authenticated by: Dwight Marsh 02/20/17
[2017-02-20] MEDS: 0.45 % SODIUM CHLORIDE 1,000 ML IV SCH (20:10)
[2017-02-20] MEDS: KETOROLAC 15 MG/ML VIAL IV PRN (20:18)
--- NOTE | 2017-02-20 20:27 | History and Physical Report ---
DATE OF ADMISSION: 02/19/2017 Mary Sierra is a very pleasant 57-year old who came to the hospital on 02/19/2017. Apparently the night before she was seen in the emergency room and had pain. She returned with continued pain after feeling a pop within the hip and x-rays showed a periprosthetic fracture, minimally displaced. At this point, she was admitted with the hospitalist, to the hospital, after evaluating the liver for abnormal findings which will need further workup; an INR was only 1.3. We decided to proceed with the case after she was cleared. BRIEF HISTORY: She was getting off the toilet and felt a pop. The second day she twisted and felt a pop. Up until this time, 10 days prior, she had no pain and was getting around quite well with her total hip and a walker. She was quite obese and this may have contributed to the problem. PAST MEDICAL HISTORY: She has otherwise been healthy. She has had chronic liver problems. ALLERGIES: SULFA MEDICATIONS. SOCIAL HISTORY: She denies tobacco or alcohol use. PHYSICAL EXAMINATION: GENERAL: Very pleasant 57-year-old female, alert and oriented times 3, mood and affect appropriate, in pain. Notes that she has had no loss of sensation, no loss of consciousness with these events. LUNGS: On exam, confirm clear to auscultation. CARDIOVASCULAR: Regular rate and rhythm. No murmurs, rubs or gallops. Her hip is painful with any motion of internal and external rotation on the left. This is the prior operative site 2 weeks prior. Her foot is pink and warm with normal dorsal pedis pulses. No pitting edema. X-ray of the left hip demonstrates proximal third calcar fracture, minimally displaced. ASSESSMENT AND PLAN: The patient has a periprosthetic fracture. This will be treated with open reduction and internal fixation and revision of the stem to a longer cemented stem given the problem with this fracture. The patient understands the risks and the benefits which include heart attack, strokes, blood clots, infections and possibly even . The patient agrees to proceed. JOSEH: Job ID: [id number] Doc ID: [id number] Henri Nava MD
[2017-02-20] MEDS ORDERED: PREGABALIN 100 MG CAPSULE PO SCH (21:00)
[2017-02-20] MEDS ORDERED: PRAZOSIN 1 MG CAPSULE PO SCH (21:00)
[2017-02-20] MEDS: HYDROcodone/APAP 10/325MG TABLET PO PRN (22:12)
[2017-02-20] MEDS: ASPIRIN 325 MG ENTERIC COATED TABLET PO SCH (22:12)
[2017-02-20] MEDS: busPIRone 5 MG TABLET PO SCH (22:12)
[2017-02-20] MEDS: SENNOSIDES 1 TABLET PO SCH (22:13)
[2017-02-20] MEDS: ceFAZolin 1 GM VIAL IV SCH (22:15)
[2017-02-20] MEDS: ARIPIPRAZOLE 5 MG TABLET PO SCH (22:26)
[2017-02-21] MEDS: METHOCARBAMOL 1,000 MG/10 ML VIAL IV PRN ×3 (00:50→21:32)
[2017-02-21] MEDS: HYDROcodone/APAP 10/325MG TABLET PO PRN ×5 (01:40→20:24)
[2017-02-21] MEDS: KETOROLAC 15 MG/ML VIAL IV PRN ×2 (03:16→10:50)
[2017-02-21] MEDS: 0.9 % SODIUM CHLORIDE 10 ML SYRINGE IV SCH ×6 (05:03→21:20)
[2017-02-21] MEDS: 0.45 % SODIUM CHLORIDE 1,000 ML IV SCH ×2 (05:04→16:24)
[2017-02-21] MEDS: ceFAZolin 1 GM VIAL IV SCH (05:09)
--- NOTE | 2017-02-21 07:02 | Operative Note ---
DATE OF OPERATION: 02/20/2017 PREOPERATIVE DIAGNOSIS: Left hip periprosthetic fracture. POSTOPERATIVE DIAGNOSIS: Left hip periprosthetic fracture. PROCEDURE: Left periprosthetic fracture with open reduction and internal fixation and revision of the femoral stem. SURGEON: Henri Nava MD VEHICLE DAMAGE APPRAISER: Fitz Pearson PA-C ANESTHESIA: General LMA anesthesia. COMPLICATIONS: None. BLOOD LOSS: About 250 mL. IMPLANT: A long, 200 mm cemented stem with 3 cables with a +7.5 neck length with ceramic head. COMPLICATIONS: None. DESCRIPTION OF PROCEDURE: The patient brought to the operating room, put to sleep with general LMA anesthesia. Once asleep, the patient had the left hip sterilely prepped and draped in the usual sterile fashion, turned into a right lateral position on the Curtis positioner. Once we confirmed this as the operative side and initials were recognized and timeout confirmed that she had received tranexamic acid as well as antibiotics, 2 grams of Ancef. Once this was done, we then made an incision through her prior scar and extended this distally to identify the fracture. We went through the fascial layer. The tissues were well healed with large hematoma that was evacuated. The hip was dislocated. The stem was removed and 3 cables were placed on the calcar region for the periprosthetic fracture. We then irrigated, reamed up to the size 13, trialed the long stem, cemented the component. Because the neck length was 5 mm shorter, we went to a 7.5 head and neck. This reduced very nicely and was very stable through the range of motion. We irrigated thoroughly and then cemented into place the 200 mm long cemented stem with 3 cables. Two x-rays were taken to confirm the position of all components and leg length. Once this cemented stem confirmed that the component was in 20 degrees of anteversion and that the neck length of the head, ceramic ball was 7.5 mm additional in length was reduced, we irrigated thoroughly. After confirming the cement was dried, we irrigated and closed our fascial layer with #1 StrataFix; 2 of these stitches were used to close the fascial layer of the gluteus elke and the IT band region. We irrigated thoroughly and then closed Maribeth's fascia with another #1 StrataFix. I then closed the skin with 0 Vicryl and 2-0 Vicryl and then adhesive closure. The patient tolerated this well. There was no complication. Sterile bandage was applied. ANTHONY: Job ID: [id number] Doc ID: [id number] Henri Nava MD
[2017-02-21 07:06] LABS: Mean Corpuscular HGB Conc 33.1 g/dL (31.0-36.0); Mean Corpuscular Hemoglobin 29.8 pg (26.0-34.0); Platelet Count 320 K/mcL (140-440); RBC 3.11 M/mcL (4.00-5.20); Red Cell Distribution Width 14.5 % (11.5-14.5)
--- NOTE | 2017-02-21 07:11 | Orthopedic Progress Note ---
Subjective Patient information: Note initiated : 02/21/17 at 7:09 am Service Date, if different from initiated Date: [] Patient: Mary Sierra 57 y/o F admitted on 02/19/17 for Left Leg Pain/Left Hip Fracture. Chief Complaint: [less pain and no cp or nausea and vomiting] Objective Vital signs: Vital Signs Temp Pulse Pulse Pulse Resp BP Pulse Ox 02/21/17 03:34 99.0 F H 93 H 12 121/81 95 02/21/17 03:33 95 02/21/17 02:00 95 02/20/17 23:40 94 02/20/17 22:53 98.8 F 104 H 12 153/98 96 02/20/17 22:00 95 02/20/17 21:35 97 H 134/82 95 02/20/17 21:05 102 H 138/82 95 02/20/17 21:00 93 02/20/17 20:42 94 02/20/17 20:35 106 H 130/73 02/20/17 20:20 99 H 136/84 91 02/20/17 20:05 103 H 145/93 79 L 02/20/17 19:50 97.8 F 104 H 14 118/65 93 02/20/17 19:45 98.5 F 102 H 14 168/79 100 02/20/17 19:30 98.5 F 98 H 14 175/82 100 02/20/17 19:15 98.5 F 102 H 14 176/84 98 02/20/17 19:10 98.5 F 97 H 12 171/67 99 02/20/17 19:05 98.5 F 101 H 14 175/76 96 02/20/17 19:00 98.5 F 98 H 12 159/107 95 02/20/17 16:00 97.6 F 18 114/70 98 02/20/17 11:33 97.7 F 20 118/68 96 02/20/17 07:50 77 12 97 02/20/17 07:19 97.9 F 20 120/78 95 Intake and Output 02/20/17 02/21/17 02/21/17 21:59 05:59 13:59 Intake Total 4090 / 4090 400 / 400 Output Total 1000 / 1000 350 / 350 Balance 3090 / 3090 50 / 50 Intake: IV 1000 / 1000 Sodium Chloride 0.9% 1, 1000 / 1000 000 ml @ 50 mls/hr IV . Q20H [facility] Rx#:[id number] Oral 90 / 90 400 / 400 IV - Manual Only 3000 / 3000 Output: Urine Catheter Amount 775 / 775 350 / 350 Void Amount 225 / 225 Other: Meal jello 2 Ice cream cups, half piece of toast Percent of Meal Consumed 100% 100% Feeding Ability Independent Independent Weight 280 lb 8 oz Intake & Output: Intake & Output 02/20/17 02/21/17 02/21/17 21:59 05:59 13:59 Intake Total 4090 / 4090 400 / 400 Output Total 1000 / 1000 350 / 350 Balance 3090 / 3090 50 / 50 Weight 280 lb 8 oz Intake: IV 1000 / 1000 Sodium Chloride 0.9% 1, 1000 / 1000 000 ml @ 50 mls/hr IV . Q20H [facility] Rx#:[id number] Oral 90 / 90 400 / 400 IV - Manual Only 3000 / 3000 Output: Urine Catheter Amount 775 / 775 350 / 350 Void Amount 225 / 225 Other: Meal jello 2 Ice cream cups, half piece of toast Percent of Meal Consumed 100% 100% Feeding Ability Independent Independent Incision: Yes healing Incision clean and dry: Yes Dressing: Yes clean Weight bearing status: full Neurological exam IM: Yes oriented X3, Yes neurovascular intact Extremities exam IM: Yes Foot pink and warm, Yes neurovascular intact (will need home health) - Labs CBC & BMP: 02/21/17 06:16 02/20/17 06:30 Labs: Orthopedic Labs 02/20/17 16:28 POC PT 13.2 POC INR 1.1 02/21/17 02/20/17 06:16 06:30 Hgb 9.3 L 11.0 L Hct 28.0 L 33.3 L
[2017-02-21] MEDS ORDERED: LEVOTHYROXINE 25 MCG TABLET PO SCH (07:30)
[2017-02-21 07:45] LABS: ALT/SGPT 298 U/l (0-40); Albumin 3.1 gm/dL (3.2-5.2); Albumin/Globulin Ratio 1.3 (1.0-2.3); Alkaline Phosphatase 735 U/L (39-117); Bilirubin,Direct 0.5 mg/dL (0.0-0.3); Blood Urea Nitrogen 12 mg/dl (6-20); Gamma Glutamyl Transpeptidase 1588 U/L (5-36); Magnesium 1.8 mg/dL (1.6-2.5); Uric Acid 4.5 mg/dL (2.5-8.0)
[2017-02-21 08:58] LABS: Eosinophils % (Manual) 2 % (0-7); Lymphocytes % 19 % (15-49); Monocytes % (Manual) 5 % (1-12); Platelet Estimate NORMAL (NORMAL); RBC Morphology NORMAL (NORMAL); Segmented Neutrophils % 74 % (38-78)
[2017-02-21] MEDS ORDERED: ASPIRIN 325 MG ENTERIC COATED TABLET PO SCH (09:00)
[2017-02-21] MEDS: DOCUSATE SODIUM 100 MG CAPSULE PO SCH ×2 (09:40→20:24)
[2017-02-21] MEDS: busPIRone 5 MG TABLET PO SCH ×2 (09:40→20:24)
[2017-02-21] MEDS: CITALOPRAM 20 MG TABLET PO SCH (09:41)
[2017-02-21] MEDS: ASPIRIN 325 MG ENTERIC COATED TABLET PO SCH ×2 (09:42→20:24)
[2017-02-21] MEDS: 0.9 % SODIUM CHLORIDE 1,000 ML IV SCH (10:36)
[2017-02-21] MEDS: HYDROmorphone 2 MG/ML SYRINGE IV PRN (10:50)
--- NOTE | 2017-02-21 10:57 | Internal Med Progress Note ---
Medical - PN: Subj Patient information: Note initiated : 02/21/17 at 10:57 am Service Date, if different from initiated Date: [] Patient: Mary Sierra a 57 y/o F admitted on 02/19/17 for Left Leg Pain/Left Hip Fracture. Chief Complaint: [] Interval history: Ms. Sierra is a 57 year old F who recently underwent Lt hip replacement and has been experienceing progressive pain a week post surgery, She has been taking 9- 10 hydrocodones a day. This morning while trying to get up from tolite seatshe turned to nfast and experiienced excrutioting pain gradede as 10/10. she was then brought in to ED for Eval. Orthopedics was consulted after imaging revealed Lt hip Acute nondisplaced left subtrochanteric hip fracture. Orthopedics admitted pt for surgical intervention. Hospitalist service was consulted. On examination patient is fairly distressed, She denies fall, syncope. Her initial labs revealed ALP >800 and AST>490 Denies alcoholism, OTC meds or herbs intake, Denies fever, jaundice, RUQ pain, Pt is post cholecystectomy. NO N/V/CP/SOB. 02/20-atient awaiting surgery for hip fracture. Urine tox screen positive for amphetamines and opioids. LFTs downtrending. Patient stable overnight. Currently nothing by mouth. Will review post operatively. currently no modifiable risk factors identified. 02/21-atient doing well. Postoperatively 1. No overnight events. Sedated. Pain in good control. Downtrending LFTs. No fever chills. No concerns expressed by nursing staff. Tolerating diet - Constitutional Vitals: Vital Signs Temp Pulse Resp BP Pulse Ox 98.4 F 94 H 16 126/75 94 02/21/17 07:51 02/21/17 08:26 02/21/17 08:26 02/21/17 07:51 02/21/17 08:27 Period Temp Pulse Resp BP Sys/Son Pulse Ox Last 24 Hr 97.6 F-99.0 F 86-106 12-20 114-176/65-107 79-100 Intake and Output 02/20/17 02/21/17 02/21/17 21:59 05:59 13:59 Intake Total 4090 / 4090 400 / 400 Output Total 1000 / 1000 350 / 350 Balance 3090 / 3090 50 / 50 Weight 280 lb 8 oz Intake & Output: Intake & Output 02/20/17 02/21/17 02/21/17 21:59 05:59 13:59 Intake Total 4090 / 4090 400 / 400 Output Total 1000 / 1000 350 / 350 Balance 3090 / 3090 50 / 50 Weight 280 lb 8 oz Intake: IV 1000 / 1000 Sodium Chloride 0.9% 1, 1000 / 1000 000 ml @ 50 mls/hr IV . Q20H [facility] Rx#:[id number] Oral 90 / 90 400 / 400 IV - Manual Only 3000 / 3000 Output: Urine Catheter Amount 775 / 775 350 / 350 Void Amount 225 / 225 Other: Meal jello 2 Ice cream cups, half piece of toast Percent of Meal Consumed 100% 100% Feeding Ability Independent Independent General appearance: disheveled, morbidly obese Exam: nondistressed nonlabored breathing pendulous abdomen left hip surgical dressing o anxiety Medical - PN: Obj Da - Labs CBC & Chem 7: 02/22/17 05:17 02/22/17 05:17 Labs: Abnormal Lab Results 02/21/17 02/21/17 02/20/17 06:16 06:16 06:30 RBC 3.11 L Hgb 9.3 L Hct 28.0 L RDW Eosinophils % (Manual) Carbon Dioxide 31 H Glucose 152 H 110 H Calcium 8.1 L Total Bilirubin 1.2 H Direct Bilirubin 0.5 H GGT 1588 H 1837 H AST 348 H 363 H ALT 298 H 321 H Alkaline Phosphatase 735 H 793 H Lactate Dehydrogenase 429 H 341 H Total Protein 5.4 L Albumin 3.1 L 02/20/17 06:30 RBC 3.68 L Hgb 11.0 L Hct 33.3 L RDW 15.1 H Eosinophils % (Manual) 11 H Carbon Dioxide Glucose Calcium Total Bilirubin Direct Bilirubin GGT AST ALT Alkaline Phosphatase Lactate Dehydrogenase Total Protein Albumin Meds: Medications Acetaminophen (Tylenol) 650 mg PO Q4-6HP PRN PRN Reason: PAIN/FEVER > 101 Acetaminophen (Tylenol) 650 mg PO Q6HP PRN PRN Reason: PAIN/FEVER > 101 Hydrocodone Bitart/Acetaminophen (Townsend 10/325mg) 0 tab PO Q4HP PRN PRN Reason: Pain Last Admin: 02/21/17 09:44 Dose: 2 tab Albuterol Sulfate (Ventolin) 1 puff INH Q4HP PRN PRN Reason: Shortness Of Breath Aspirin (Ecotrin) 325 mg PO BID [facility] Last Admin: 02/21/17 09:42 Dose: 325 mg Bisacodyl (Dulcolax) 10 mg OR Q2-3DAYS PRN PRN Reason: Constipation Buspirone HCl (Buspar) 15 mg PO BID [facility] Last Admin: 02/21/17 09:40 Dose: 15 mg Citalopram Hydrobromide (Celexa) 40 mg PO DAILY [facility] Last Admin: 02/21/17 09:41 Dose: 40 mg Dextrose (Dextrose 50%) 0 ml IV UD PRN PRN Reason: Hypoglycemia Diagnostic Test (Pha) (Accu-Chek) 1 each FS ACHS [facility] Last Admin: 02/21/17 08:40 Dose: 1 each Docusate Sodium (Colace) 100 mg PO BID [facility] Last Admin: 02/21/17 09:40 Dose: 100 mg Glucose (Insta-Glucose) 15 gm PO PRN PRN PRN Reason: Hypoglycemia Heparin Sodium (Porcine) (Heparin) 5,000 unit SQ Q12 [facility] Hydromorphone HCl (Dilaudid) 0.2 - 0.4 mg IV Q1HP PRN PRN Reason: Pain Last Admin: 02/21/17 10:50 Dose: 0.4 mg Hydromorphone HCl (Dilaudid) 0 mg IV Q2HP PRN PRN Reason: Pain Sodium Chloride (Sodium Chloride 0.9%) 1,000 mls @ 50 mls/hr IV .Q20H [facility] Stop: 02/22/17 05:13 Last Admin: 02/21/17 10:36 Dose: Not Given Acetaminophen (Ofirmev) 1,000 mg in 100 mls @ 200 mls/hr IV Q6HP PRN PRN Reason: PAIN/FEVER > 101 Last Admin: 02/20/17 07:14 Dose: 200 mls/hr Sodium Chloride (Sodium Chloride 0.45%) 1,000 mls @ 100 mls/hr IV .Q10H [facility] Last Admin: 02/21/17 05:04 Dose: Not Given Ketorolac Tromethamine (Toradol) 15 mg IV Q6HP PRN PRN Reason: Pain Stop: 02/22/17 18:42 Last Admin: 02/21/17 10:50 Dose: 15 mg Magnesium Hydroxide (Milk Of Magnesia) 30 ml PO BIDP PRN PRN Reason: Constipation Methocarbamol (Robaxin) 750 mg IV Q6HP PRN PRN Reason: Muscle Spasm Last Admin: 02/21/17 08:39 Dose: 750 mg Ondansetron HCl (Zofran) 4 mg IV Q4HP PRN PRN Reason: Nausea And Vomiting Polyethylene Glycol (Miralax) 17 gm PO DAILYP PRN PRN Reason: Constipation Senna (Senokot) 2 tab PO HS [facility] Last Admin: 02/20/17 22:13 Dose: Not Given Sodium Biphosphate/Sodium Phosphate (Fleets Adult) 1 dose OR Q3-4DAYS PRN PRN Reason: Constipation Sodium Chloride (Saline Flush) 10 ml IV Q8 [facility] Last Admin: 02/21/17 05:03 Dose: Not Given Sodium Chloride (Saline Flush) 10 ml IV Q8 [facility] Last Admin: 02/21/17 05:03 Dose: Not Given Temazepam (Restoril) 15 mg PO HSP PRN PRN Reason: Insomnia Throat Lozenges (Cepacol) 1 lozenge PO PRN PRN PRN Reason: Sore Throat Medical - PN: A/P - Time Spent With Patient Total time spent is greater than 50% in coordination of care (as documented) at patient's floor/unit and/or counseling patient: 25 - 35 minutes (1) Closed left hip fracture Status: Acute Assessment and plan: * Lt hip fracture- ostoperative day 1. Mx per Orthopedics including preoperative and postoperative pain management/postoperative care. Hospitalist consult * Elevated LFT's -downtrending. Negative US abd, CT abd , Tox screen + Amphetamines, Negative APAP. Other medical conditions-on home meds * Low thyroid- continue thyroxine * HTN continue prazosin * Anxiety- Continue buspirone/citalopram * DMII-start sliding scale insulin,metformin * neuropathy managed on pregabalin * reactive airway disease on bronchodilators * full code Current Visit: Yes
[2017-02-21] MEDS: INSULIN LISPRO 1 UNIT/0.01 ML UNIT SQ SCH ×2 (16:30→20:30)
[2017-02-21] MEDS: SENNOSIDES 1 TABLET PO SCH (20:25)
[2017-02-21] MEDS: HEPARIN 5,000 UNIT/ML VIAL SQ SCH (20:25)
[2017-02-21] MEDS: ARIPIPRAZOLE 5 MG TABLET PO SCH (21:25)
[2017-02-22] MEDS: HYDROcodone/APAP 10/325MG TABLET PO PRN ×6 (00:02→20:19)
[2017-02-22] MEDS: 0.45 % SODIUM CHLORIDE 1,000 ML IV SCH (01:08)
[2017-02-22] MEDS: BENZOCAINE/MENTHOL 1 LOZENGE PO PRN ×2 (03:56→11:13)
[2017-02-22] MEDS: 0.9 % SODIUM CHLORIDE 10 ML SYRINGE IV SCH ×6 (06:02→23:34)
[2017-02-22 06:29] LABS: Mean Cell Volume 90.9 fL (80.0-100.0); Mean Corpuscular HGB Conc 32.7 g/dL (31.0-36.0); Mean Corpuscular Hemoglobin 29.7 pg (26.0-34.0); Platelet Count 277 K/mcL (140-440); RBC 2.86 M/mcL (4.00-5.20); Red Cell Distribution Width 15.6 % (11.5-14.5)
[2017-02-22 07:00] LABS: ALT/SGPT 190 U/l (0-40); Albumin 2.9 gm/dL (3.2-5.2); Albumin/Globulin Ratio 1.3 (1.0-2.3); Alkaline Phosphatase 655 U/L (39-117); Bilirubin,Direct 1.4 mg/dL (0.0-0.3); Blood Urea Nitrogen 10 mg/dl (6-20); Magnesium 1.8 mg/dL (1.6-2.5); Uric Acid 4.3 mg/dL (2.5-8.0)
[2017-02-22 07:10] LABS: Gamma Glutamyl Transpeptidase 1370 U/L (5-36)
[2017-02-22 07:48] LABS: Anisocytosis FEW (NONE SEEN); Eosinophils % (Manual) 9 % (0-7); Lymphocytes % 22 % (15-49); Monocytes % (Manual) 6 % (1-12); Myelocytes % 2 % (0-0); Platelet Estimate NORMAL (NORMAL); RBC Morphology ABNORM (NORMAL); Segmented Neutrophils % 61 % (38-78)
[2017-02-22] MEDS: metFORMIN 500 MG TABLET PO SCH ×2 (07:48→17:01)
[2017-02-22] MEDS: INSULIN LISPRO 1 UNIT/0.01 ML UNIT SQ SCH ×4 (07:50→21:39)
[2017-02-22] MEDS: busPIRone 5 MG TABLET PO SCH ×2 (08:41→20:18)
[2017-02-22] MEDS: DOCUSATE SODIUM 100 MG CAPSULE PO SCH ×2 (08:41→20:19)
[2017-02-22] MEDS: ASPIRIN 325 MG ENTERIC COATED TABLET PO SCH ×2 (08:42→20:18)
[2017-02-22] MEDS: CITALOPRAM 20 MG TABLET PO SCH (08:42)
[2017-02-22] MEDS: HEPARIN 5,000 UNIT/ML VIAL SQ SCH ×2 (08:44→20:18)
--- NOTE | 2017-02-22 10:44 | Internal Med Progress Note ---
Medical - PN: Subj Patient information: Note initiated : 02/22/17 at 10:41 am Service Date, if different from initiated Date: [] Patient: Mary Sierra a 57 y/o F admitted on 02/19/17 for Left Leg Pain/Left Hip Fracture. Chief Complaint: [] Interval history: Ms. Sierra is a 57 year old F who recently underwent Lt hip replacement and has been experienceing progressive pain a week post surgery, She has been taking 9- 10 hydrocodones a day. This morning while trying to get up from tolite seatshe turned to nfast and experiienced excrutioting pain gradede as 10/10. she was then brought in to ED for Eval. Orthopedics was consulted after imaging revealed Lt hip Acute nondisplaced left subtrochanteric hip fracture. Orthopedics admitted pt for surgical intervention. Hospitalist service was consulted. On examination patient is fairly distressed, She denies fall, syncope. Her initial labs revealed ALP >800 and AST>490 Denies alcoholism, OTC meds or herbs intake, Denies fever, jaundice, RUQ pain, Pt is post cholecystectomy. NO N/V/CP/SOB. 02/20-atient awaiting surgery for hip fracture. Urine tox screen positive for amphetamines and opioids. LFTs downtrending. Patient stable overnight. Currently nothing by mouth. Will review post operatively. currently no modifiable risk factors identified. 02/21-atient doing well. Postoperatively 1. No overnight events. Sedated. Pain in good control. Downtrending LFTs. No fever chills. No concerns expressed by nursing staff. Tolerating diet 02/22-patient doing well. No overnight events. On room air. Pain much improved. Foleys draining clear urine. Postoperative day 2. no concerns expressed by nursing staff or patient. boyfriend at bedside. Tolerating diet. - Constitutional Vitals: Vital Signs Temp Pulse Resp BP Pulse Ox 97.6 F 95 H 16 143/75 90 02/22/17 08:00 02/22/17 07:54 02/22/17 08:00 02/22/17 08:00 02/22/17 08:00 Period Temp Pulse Resp BP Sys/Son Pulse Ox Last 24 Hr 97.6 F-98.9 F 88-99 12-16 114-143/75-81 90-98 Intake and Output 02/21/17 02/22/17 02/22/17 21:59 05:59 13:59 Intake Total 240 / 240 350 / 350 200 / 200 Output Total 1125 / 1125 700 / 700 Balance -885 / -885 -350 / -350 200 / 200 Weight 291 lb 8 oz Intake & Output: Intake & Output 02/21/17 02/22/17 02/22/17 21:59 05:59 13:59 Intake Total 240 / 240 350 / 350 200 / 200 Output Total 1125 / 1125 700 / 700 Balance -885 / -885 -350 / -350 200 / 200 Weight 291 lb 8 oz Intake: Oral 240 / 240 350 / 350 200 / 200 Output: Urine Catheter Amount 1125 / 1125 700 / 700 Other: Meal Lunch General appearance: morbidly obese, no acute distress Exam: lert oriented no anxiety nonlabored breathing Sitting on chair foleys draining clear urine Medical - PN: Obj Da - Labs CBC & Chem 7: 02/22/17 05:17 02/22/17 05:17 Labs: Abnormal Lab Results 02/22/17 02/22/17 02/21/17 05:17 05:17 06:16 RBC 2.86 L Hgb 8.5 L Hct 26.0 L RDW 15.6 H Eosinophils % (Manual) 9 H Myelocytes % 2 H RBC Morphology Abnorm A Anisocytosis Few A Carbon Dioxide 31 H 31 H Glucose 124 H 152 H Calcium 8.1 L 8.1 L Phosphorus 2.4 L Total Bilirubin 2.0 H 1.2 H Direct Bilirubin 1.4 H 0.5 H GGT 1370 H 1588 H AST 225 H 348 H ALT 190 H 298 H Alkaline Phosphatase 655 H 735 H Lactate Dehydrogenase 322 H 429 H Total Protein 5.2 L 5.4 L Albumin 2.9 L 3.1 L Triglycerides 154 H 02/21/17 02/20/17 02/20/17 06:16 06:30 06:30 RBC 3.11 L 3.68 L Hgb 9.3 L 11.0 L Hct 28.0 L 33.3 L RDW 15.1 H Eosinophils % (Manual) 11 H Myelocytes % RBC Morphology Anisocytosis Carbon Dioxide Glucose 110 H Calcium Phosphorus Total Bilirubin Direct Bilirubin GGT 1837 H AST 363 H ALT 321 H Alkaline Phosphatase 793 H Lactate Dehydrogenase 341 H Total Protein Albumin Triglycerides Meds: Medications Acetaminophen (Tylenol) 650 mg PO Q4-6HP PRN PRN Reason: PAIN/FEVER > 101 Acetaminophen (Tylenol) 650 mg PO Q6HP PRN PRN Reason: PAIN/FEVER > 101 Hydrocodone Bitart/Acetaminophen ([place] 10/325mg) 0 tab PO Q4HP PRN PRN Reason: Pain Last Admin: 02/22/17 07:48 Dose: 2 tab Albuterol Sulfate (Ventolin) 1 puff INH Q4HP PRN PRN Reason: Shortness Of Breath Aspirin (Ecotrin) 325 mg PO BID [facility] Last Admin: 02/22/17 08:42 Dose: 325 mg Bisacodyl (Dulcolax) 10 mg TN Q2-3DAYS PRN PRN Reason: Constipation Buspirone HCl (Buspar) 15 mg PO BID [facility] Last Admin: 02/22/17 08:41 Dose: 15 mg Citalopram Hydrobromide (Celexa) 40 mg PO DAILY [facility] Last Admin: 02/22/17 08:42 Dose: 40 mg Dextrose (Dextrose 50%) 0 ml IV UD PRN PRN Reason: Hypoglycemia Diagnostic Test (Pha) (Accu-Chek) 1 each FS ACHS [facility] Last Admin: 02/22/17 07:50 Dose: 1 each Docusate Sodium (Colace) 100 mg PO BID [facility] Last Admin: 02/22/17 08:41 Dose: 100 mg Glucose (Insta-Glucose) 15 gm PO PRN PRN PRN Reason: Hypoglycemia Heparin Sodium (Porcine) (Heparin) 5,000 unit SQ Q12 [facility] Last Admin: 02/22/17 08:44 Dose: 5,000 unit Hydromorphone HCl (Dilaudid) 0.2 - 0.4 mg IV Q1HP PRN PRN Reason: Pain Last Admin: 02/21/17 10:50 Dose: 0.4 mg Hydromorphone HCl (Dilaudid) 0 mg IV Q2HP PRN PRN Reason: Pain Last Admin: 02/21/17 16:21 Dose: 0.4 mg Acetaminophen (Ofirmev) 1,000 mg in 100 mls @ 200 mls/hr IV Q6HP PRN PRN Reason: PAIN/FEVER > 101 Last Admin: 02/20/17 07:14 Dose: 200 mls/hr Insulin Human Lispro (Humalog) 0 unit SQ ACHS [facility] PRN Reason: Protocol Last Admin: 02/22/17 07:50 Dose: Not Given Ketorolac Tromethamine (Toradol) 15 mg IV Q6HP PRN PRN Reason: Pain Stop: 02/22/17 18:42 Last Admin: 02/21/17 10:50 Dose: 15 mg Magnesium Hydroxide (Milk Of Magnesia) 30 ml PO BIDP PRN PRN Reason: Constipation Metformin HCl (Glucophage) 500 mg PO BIDCC [facility] Last Admin: 02/22/17 07:48 Dose: 500 mg Methocarbamol (Robaxin) 750 mg IV Q6HP PRN PRN Reason: Muscle Spasm Last Admin: 02/21/17 21:32 Dose: 750 mg Ondansetron HCl (Zofran) 4 mg IV Q4HP PRN PRN Reason: Nausea And Vomiting Last Admin: 02/21/17 17:25 Dose: 4 mg Polyethylene Glycol (Miralax) 17 gm PO DAILYP PRN PRN Reason: Constipation Senna (Senokot) 2 tab PO HS [facility] Last Admin: 02/21/17 20:25 Dose: 2 tab Sodium Biphosphate/Sodium Phosphate (Fleets Adult) 1 dose TN Q3-4DAYS PRN PRN Reason: Constipation Sodium Chloride (Saline Flush) 10 ml IV Q8 [facility] Last Admin: 02/22/17 06:02 Dose: 10 ml Sodium Chloride (Saline Flush) 10 ml IV Q8 [facility] Last Admin: 02/22/17 06:02 Dose: Not Given Temazepam (Restoril) 15 mg PO HSP PRN PRN Reason: Insomnia Throat Lozenges (Cepacol) 1 lozenge PO PRN PRN PRN Reason: Sore Throat Last Admin: 02/22/17 03:56 Dose: 1 lozenge Medical - PN: A/P - Time Spent With Patient Total time spent is greater than 50% in coordination of care (as documented) at patient's floor/unit and/or counseling patient: 15 - 24 minutes (1) Closed left hip fracture Status: Acute Assessment and plan: * Lt hip fracture- ostoperative day 2. Mx per Orthopedics including preoperative and postoperative pain management/postoperative care. Hospitalist consult * Elevated LFT's -ontinues to downtrending. Negative US abd, CT abd , Tox screen + Amphetamines, Negative APAP. * acute blood loss anemia- post operative hemoglobin dropped from 1.4-8.5. No indication for transfusion as yet. Continue monitoring * hypothyroid- continue thyroxine * HTN continue prazosin * Anxiety- Continue buspirone/citalopram * DMII-continue sliding scale insulin,metformin. Blood sugars at goal * neuropathy stable on pregabalin * reactive airway disease on bronchodilators * full code Current Visit: Yes
--- NOTE | 2017-02-22 19:42 | Orthopedic Progress Note ---
Subjective Patient information: Note initiated : 02/22/17 at 7:41 pm Service Date, if different from initiated Date: [] Patient: Mary Sierra 57 y/o F admitted on 02/19/17 for Left Leg Pain/Left Hip Fracture. Chief Complaint: [minimal pain and no cp no sob no nausea and vomiting] Objective Vital signs: Vital Signs Temp Pulse Pulse Resp BP Pulse Ox 02/22/17 16:00 97.9 F 16 121/70 93 02/22/17 12:00 97.7 F 16 135/78 91 02/22/17 08:00 97.6 F 16 143/75 90 02/22/17 07:54 95 H 97 02/22/17 04:00 97.9 F 91 H 16 127/81 95 02/22/17 00:00 97.9 F 90 16 114/77 95 02/21/17 22:00 95 02/21/17 20:00 98.9 F 99 H 16 116/78 95 Intake and Output 02/22/17 02/22/17 02/22/17 05:59 13:59 21:59 Intake Total 350 / 350 200 / 200 Output Total 700 / 700 Balance -350 / -350 200 / 200 Intake: Oral 350 / 350 200 / 200 Output: Urine Catheter Amount 700 / 700 Other: Meal Lunch Dinner Percent of Meal Consumed 100% 75% Intake & Output: Intake & Output 02/22/17 02/22/17 02/22/17 05:59 13:59 21:59 Intake Total 350 / 350 200 / 200 Output Total 700 / 700 Balance -350 / -350 200 / 200 Intake: Oral 350 / 350 200 / 200 Output: Urine Catheter Amount 700 / 700 Other: Meal Lunch Dinner Percent of Meal Consumed 100% 75% Incision: Yes healing Incision clean and dry: Yes Dressing: Yes clean Weight bearing status: full Neurological exam IM: Yes neurovascular intact Extremities exam IM: Yes Foot pink and warm, Yes neurovascular intact (dc home in morning) - Labs CBC & BMP: 02/22/17 05:17 02/22/17 05:17 Labs: Orthopedic Labs 02/20/17 16:28 POC PT 13.2 POC INR 1.1 02/22/17 02/21/17 02/20/17 05:17 06:16 06:30 Hgb 8.5 L 9.3 L 11.0 L Hct 26.0 L 28.0 L 33.3 L
--- NOTE | 2017-02-22 19:45 | Discharge Summary ---
Ortho Discharge - [facility] - Patient Instructions Diet: Regular Diet Activity: activity as tolerated, weight bearing as tolerated Total Hip Protocol: Follow activity instructions as provided by Physical Therapy. Dressing Care: Beth Franklin - leave on for 5 days - Follow Up Plan Follow Up Appointments: Mireya Rai DO [Primary Care Provider] - Disposition: Home, Self-Care Prognosis: Fair Rehab Potential: Good I certify that the patient requires SNF services: No Overall status at discharge: patient is progressing back to baseline
[2017-02-22] MEDS: SENNOSIDES 1 TABLET PO SCH (20:19)
[2017-02-22] MEDS: METHOCARBAMOL 1,000 MG/10 ML VIAL IV PRN (21:32)
[2017-02-22] MEDS: ARIPIPRAZOLE 5 MG TABLET PO SCH (21:42)
[2017-02-23] MEDS: BENZOCAINE/MENTHOL 1 LOZENGE PO PRN (01:29)
[2017-02-23] MEDS: HYDROcodone/APAP 10/325MG TABLET PO PRN ×3 (01:32→12:25)
[2017-02-23] MEDS: 0.9 % SODIUM CHLORIDE 10 ML SYRINGE IV SCH (06:16)
[2017-02-23] MEDS: metFORMIN 500 MG TABLET PO SCH (06:59)
[2017-02-23] MEDS: INSULIN LISPRO 1 UNIT/0.01 ML UNIT SQ SCH ×2 (07:00→11:17)
[2017-02-23 07:38] LABS: Mean Cell Volume 91.2 fL (80.0-100.0); Mean Corpuscular HGB Conc 32.3 g/dL (31.0-36.0); Mean Corpuscular Hemoglobin 29.4 pg (26.0-34.0); Platelet Count 273 K/mcL (140-440); RBC 2.67 M/mcL (4.00-5.20); Red Cell Distribution Width 15.3 % (11.5-14.5)
[2017-02-23] MEDS: busPIRone 5 MG TABLET PO SCH (08:26)
[2017-02-23] MEDS: ASPIRIN 325 MG ENTERIC COATED TABLET PO SCH (08:27)
[2017-02-23] MEDS: METHOCARBAMOL 1,000 MG/10 ML VIAL IV PRN (08:27)
[2017-02-23] MEDS: DOCUSATE SODIUM 100 MG CAPSULE PO SCH (08:27)
[2017-02-23] MEDS: CITALOPRAM 20 MG TABLET PO SCH (08:27)
[2017-02-23] MEDS: HEPARIN 5,000 UNIT/ML VIAL SQ SCH (08:27)
[2017-02-23 08:40] LABS: ALT/SGPT 161 U/l (0-40); Albumin 2.6 gm/dL (3.2-5.2); Alkaline Phosphatase 652 U/L (39-117); Bilirubin,Direct 1.2 mg/dL (0.0-0.3); Blood Urea Nitrogen 9 mg/dl (6-20); Gamma Glutamyl Transpeptidase 1303 U/L (5-36); Magnesium 1.9 mg/dL (1.6-2.5); Uric Acid 4.2 mg/dL (2.5-8.0)
[2017-02-23 09:14] LABS: Anisocytosis 1+ (NONE SEEN); Band Neutrophils % 1 % (0-10); Basophils % (Manual) 1 % (0-2); Eosinophils % (Manual) 11 % (0-7); Lymphocytes % 27 % (15-49); Metamyelocytes % 1 % (0-0); Monocytes % (Manual) 7 % (1-12); Platelet Estimate NORMAL (NORMAL); RBC Morphology ABNORM (NORMAL); Segmented Neutrophils % 52 % (38-78)
--- NOTE | 2017-02-23 09:46 | Internal Med Progress Note ---
Medical - PN: Subj Patient information: Note initiated : 02/23/17 at 9:43 am Service Date, if different from initiated Date: [] Patient: Mary Sierra a 57 y/o F admitted on 02/19/17 for Left Leg Pain/Left Hip Fracture. Chief Complaint: [] Interval history: Ms. Sierra is a 57 year old F who recently underwent Lt hip replacement and has been experienceing progressive pain a week post surgery, She has been taking 9- 10 hydrocodones a day. This morning while trying to get up from tolite seatshe turned to nfast and experiienced excrutioting pain gradede as 10/10. she was then brought in to ED for Eval. Orthopedics was consulted after imaging revealed Lt hip Acute nondisplaced left subtrochanteric hip fracture. Orthopedics admitted pt for surgical intervention. Hospitalist service was consulted. On examination patient is fairly distressed, She denies fall, syncope. Her initial labs revealed ALP >800 and AST>490 Denies alcoholism, OTC meds or herbs intake, Denies fever, jaundice, RUQ pain, Pt is post cholecystectomy. NO N/V/CP/SOB. 02/20-atient awaiting surgery for hip fracture. Urine tox screen positive for amphetamines and opioids. LFTs downtrending. Patient stable overnight. Currently nothing by mouth. Will review post operatively. currently no modifiable risk factors identified. 02/21-atient doing well. Postoperatively 1. No overnight events. Sedated. Pain in good control. Downtrending LFTs. No fever chills. No concerns expressed by nursing staff. Tolerating diet 02/22-patient doing well. No overnight events. On room air. Pain much improved. Foleys draining clear urine. Postoperative day 2. no concerns expressed by nursing staff or patient. boyfriend at bedside. Tolerating diet. -atient doing well. No overnight events. No concerns per staff. Ambulating. On room air. Discharging home as per recommendations of orthopedics. No further recommendations from hospitalist service. Significant improvement in LFTs LFT's. recommend outpatient comprehensive panel in 1 week by primary care physician o trend LFTs - Constitutional Vitals: Vital Signs Temp Pulse Resp BP Pulse Ox 97.2 F 87 18 121/74 90 02/23/17 06:39 02/23/17 04:00 02/23/17 06:39 02/23/17 06:39 02/23/17 06:39 Period Temp Pulse Resp BP Sys/Son Pulse Ox Last 24 Hr 97.2 F-98.4 F 87-95 14-18 119-160/70-90 87-98 Intake and Output 02/22/17 02/23/17 02/23/17 21:59 05:59 13:59 Intake Total 240 / 240 100 / 100 Output Total 100 / 100 50 / 50 350 / 350 Balance 140 / 140 50 / 50 -350 / -350 Weight 289 lb Intake & Output: Intake & Output 02/22/17 02/23/17 02/23/17 21:59 05:59 13:59 Intake Total 240 / 240 100 / 100 Output Total 100 / 100 50 / 50 350 / 350 Balance 140 / 140 50 / 50 -350 / -350 Weight 289 lb Intake: Oral 240 / 240 100 / 100 Output: Void Amount 100 / 100 50 / 50 350 / 350 Other: Meal Dinner Breakfast Percent of Meal Consumed 100% 75% Feeding Ability Assist with Tray Set Up # Voids 1 1 General appearance: cooperative, no acute distress Exam: n room air nonlabored breathing Alert oriented Obese no anxiety Medical - PN: Obj Da - Labs CBC & Chem 7: 02/23/17 06:08 02/23/17 06:08 Labs: Abnormal Lab Results 02/23/17 02/23/17 02/22/17 06:08 06:08 05:17 RBC 2.67 L Hgb 7.9 L Hct 24.4 L RDW 15.3 H Eosinophils % (Manual) 11 H Metamyelocytes % 1 H Myelocytes % RBC Morphology Abnorm A Anisocytosis 1+ A Carbon Dioxide 35 H 31 H Anion Gap 4.0 L Glucose 124 H Calcium 8.1 L 8.1 L Phosphorus 2.4 L Total Bilirubin 1.8 H 2.0 H Direct Bilirubin 1.2 H 1.4 H GGT 1303 H 1370 H AST 191 H 225 H ALT 161 H 190 H Alkaline Phosphatase 652 H 655 H Lactate Dehydrogenase 305 H 322 H Total Protein 5.2 L 5.2 L Albumin 2.6 L 2.9 L Triglycerides 154 H 154 H 02/22/17 02/21/17 02/21/17 05:17 06:16 06:16 RBC 2.86 L 3.11 L Hgb 8.5 L 9.3 L Hct 26.0 L 28.0 L RDW 15.6 H Eosinophils % (Manual) 9 H Metamyelocytes % Myelocytes % 2 H RBC Morphology Abnorm A Anisocytosis Few A Carbon Dioxide 31 H Anion Gap Glucose 152 H Calcium 8.1 L Phosphorus Total Bilirubin 1.2 H Direct Bilirubin 0.5 H GGT 1588 H AST 348 H ALT 298 H Alkaline Phosphatase 735 H Lactate Dehydrogenase 429 H Total Protein 5.4 L Albumin 3.1 L Triglycerides Meds: Medications Acetaminophen (Tylenol) 650 mg PO Q4-6HP PRN PRN Reason: PAIN/FEVER > 101 Acetaminophen (Tylenol) 650 mg PO Q6HP PRN PRN Reason: PAIN/FEVER > 101 Hydrocodone Bitart/Acetaminophen ([place] 10/325mg) 0 tab PO Q4HP PRN PRN Reason: Pain Last Admin: 02/23/17 06:59 Dose: 2 tab Albuterol Sulfate (Ventolin) 1 puff INH Q4HP PRN PRN Reason: Shortness Of Breath Aspirin (Ecotrin) 325 mg PO BID [facility] Last Admin: 02/23/17 08:27 Dose: 325 mg Bisacodyl (Dulcolax) 10 mg TN Q2-3DAYS PRN PRN Reason: Constipation Buspirone HCl (Buspar) 15 mg PO BID [facility] Last Admin: 02/23/17 08:26 Dose: 15 mg Citalopram Hydrobromide (Celexa) 40 mg PO DAILY [facility] Last Admin: 02/23/17 08:27 Dose: 40 mg Dextrose (Dextrose 50%) 0 ml IV UD PRN PRN Reason: Hypoglycemia Diagnostic Test (Pha) (Accu-Chek) 1 each FS ACHS [facility] Last Admin: 02/23/17 07:00 Dose: 1 each Docusate Sodium (Colace) 100 mg PO BID [facility] Last Admin: 02/23/17 08:27 Dose: 100 mg Glucose (Insta-Glucose) 15 gm PO PRN PRN PRN Reason: Hypoglycemia Heparin Sodium (Porcine) (Heparin) 5,000 unit SQ Q12 [facility] Last Admin: 02/23/17 08:27 Dose: 5,000 unit Hydromorphone HCl (Dilaudid) 0.2 - 0.4 mg IV Q1HP PRN PRN Reason: Pain Last Admin: 02/21/17 10:50 Dose: 0.4 mg Hydromorphone HCl (Dilaudid) 0 mg IV Q2HP PRN PRN Reason: Pain Last Admin: 02/21/17 16:21 Dose: 0.4 mg Acetaminophen (Ofirmev) 1,000 mg in 100 mls @ 200 mls/hr IV Q6HP PRN PRN Reason: PAIN/FEVER > 101 Last Admin: 02/20/17 07:14 Dose: 200 mls/hr Insulin Human Lispro (Humalog) 0 unit SQ ACHS [facility] PRN Reason: Protocol Last Admin: 02/23/17 07:00 Dose: Not Given Magnesium Hydroxide (Milk Of Magnesia) 30 ml PO BIDP PRN PRN Reason: Constipation Metformin HCl (Glucophage) 500 mg PO BIDCC [facility] Last Admin: 02/23/17 06:59 Dose: 500 mg Methocarbamol (Robaxin) 750 mg IV Q6HP PRN PRN Reason: Muscle Spasm Last Admin: 02/23/17 08:27 Dose: 750 mg Ondansetron HCl (Zofran) 4 mg IV Q4HP PRN PRN Reason: Nausea And Vomiting Last Admin: 02/21/17 17:25 Dose: 4 mg Polyethylene Glycol (Miralax) 17 gm PO DAILYP PRN PRN Reason: Constipation Senna (Senokot) 2 tab PO HS [facility] Last Admin: 02/22/17 20:19 Dose: 2 tab Sodium Biphosphate/Sodium Phosphate (Fleets Adult) 1 dose TN Q3-4DAYS PRN PRN Reason: Constipation Sodium Chloride (Saline Flush) 10 ml IV Q8 [facility] Last Admin: 02/23/17 06:16 Dose: 10 ml Temazepam (Restoril) 15 mg PO HSP PRN PRN Reason: Insomnia Throat Lozenges (Cepacol) 1 lozenge PO PRN PRN PRN Reason: Sore Throat Last Admin: 02/23/17 01:29 Dose: 1 lozenge Medical - PN: A/P - Time Spent With Patient Total time spent is greater than 50% in coordination of care (as documented) at patient's floor/unit and/or counseling patient: 15 - 24 minutes (1) Closed left hip fracture Status: Acute Assessment and plan: * Lt hip fracture- Postoperative day 3. ischarging per orthopedics Hospitalist consult * Elevated LFT's -Continues to downtrending. Negative US abd, CT abd , Tox screen + Amphetamines, Negative APAP. ecommend outpatient CMP checked in 1 week y primary care physician * Acute blood loss anemia- post operative hemoglobin dropped from 1.4-8.5->7.9. No indication for transfusion as yet. Continue monitoring. ecommend iron supplements * hypothyroid- continue thyroxine * HTN continue prazosin * Anxiety- Continue buspirone/citalopram * DMII-continue sliding scale insulin,metformin. Blood sugars at goal * neuropathy stable on pregabalin * reactive airway disease on bronchodilators * full code recommendations * iron infusion prior to discharge * PCP follow-up in 1 week * cMP in 1 week by PCP * Iron supplements Current Visit: Yes
[2017-02-23] MEDS ORDERED: IRON SUCROSE COMPLEX 400 MG in 0.9 % SODIUM CHLORIDE 250 ML IV ONE (10:00)
[2017-02-23] MEDS ORDERED: FLU VACC QS2017-18 36MOS UP/PF 60 MCG/0.5 ML SYRINGE IM ONE (11:00)
== END 2017-02-23 14:30 | disposition home or self-care (01) | DRG 467 ==
LOC: ED 12:17 → MEDSUR 16:57
PROVIDERS: ADMIT Orthopaedic Surgery; ATTEND Orthopaedic Surgery